=== PATIENT | male | born 1985 | race Caucasian/White ===

== ENCOUNTER 2023-12-30 11:24 | Inpatient (IN) | payer SELFPAY ==
[2023-12-30] VITALS (69 sets, daily range): BP systolic 61–120; BP diastolic 39–70; PULSE 57–112; TEMP 37.1; O2SAT 88–100
--- NOTE | 2023-12-30 11:32 | CT_ITS ---
WS: [id number] CT HEAD TECHNIQUE: Noncontrast CT of the head obtained from the skullbase to the vertex. CLINICAL INFORMATION: Encephalopathy, altered mental status COMPARISON: None. DLP: 1168.[address] scans at [facility] use at least one of these dose optimization techniques: automated e xposure control; mA and/or kV adjustment per patient size (includes targeted exams where dose is matc hed to clinical indication); or iterative reconstruction. FINDINGS: No evidence of intracranial hemorrhage or mass effect. Ventricular system and basal cisterns are alba nt. No extra-axial fluid collections. No evidence of mass or mass effect. Normal hutson-white different iation. Slight mucosal thickening in the ethmoid air cells. Mastoid air cells well aerated. CT/CT head wo con* [id number] IMPRESSION: 1. No evidence of intracranial hemorrhage or mass effect. 2. No acute intracranial findings.
--- NOTE | 2023-12-30 11:32 | XRR_ITS ---
PROCEDURE INFORMATION: Exam: XR Chest Exam date and time: 12/30/2023 11:36 AM Age: 38 years old Clinical indication: Other: Weakness TECHNIQUE: Imaging protocol: Radiologic exam of the chest. Views: 1 view. COMPARISON: No relevant prior studies available. FINDINGS: Lungs: Unremarkable. No consolidation. Pleural spaces: Unremarkable. No pleural effusion. No pneumothorax. Heart/Mediastinum: Unremarkable. No cardiomegaly. Bones/joints: Unremarkable. XR/XR chest 1V portable [id number] IMPRESSION: No acute findings.
--- NOTE | 2023-12-30 11:34 | ECG_ITS ---
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 Measurements Intervals [place] Rate: 110 P: 82 LA: 142 QRS: 85 QRSD: 98 T: 57 QT: 328 QTc: 444 Interpretive Statements SINUS TACHYCARDIA POSSIBLE RIGHT ATRIAL ENLARGEMENT [0.25mV P-WAVE] POSSIBLE LEFT ATRIAL ENLARGEMENT [-0.1mV P-WAVE IN V1/V2] ABNORMAL RHYTHM ECG INTERPRETATION BASED ON A DEFAULT AGE OF 40 YEARS No previous ECG available for comparison Electronically Signed On 12-31-2023 6:26:31 CDT by Reynaldo Alexander M.D. [email or web address]
--- NOTE | 2023-12-30 11:37 | ED_ITS ---
HPI - Seizure 2 General: Chief Complaint: Seizure Stated Complaint: Seizures x 2 Time Seen by Provider: 12/30/23 11:29 History of Present Illness: HPI Narrative: 38-year-old man who presents to the [facility] room by ambulance after having had a seizure. Per EMS he lives in the home of a woman who does not know anything about him. We are told he is expelled. He smokes marijuana but no other information at this time. EMS reports he was actively seizing when they arrived they gave a total of 4 of Ativan and when he came to he became agitated and they gave him some Haldol. On arrival here he is having sonorous breathing and is basically unresponsive. Review of Systems 2 General: Reports: ROS unobtainable due to medical condition and ROS unobtainable due to mental status Physical Exam 2 Narrative: EXAM NARRATIVE: General: responds minimally to painful stimuli. Snoring respirations Skin: Warm, dry Head: Normocephalic, atraumatic. Neck: Supple, trachea midline. Eye: Extraocular movements are intact. Ears, nose, mouth and throat: Dry oral mucosa. Cardiovascular: Regular rate and rhythm, Normal peripheral perfusion. Respiratory: Lungs are clear to auscultation, respirations are non-labored, breath sounds are equal, Symmetrical chest wall expansion. Gastrointestinal: Soft, Nontender, Non distended, Normal bowel sounds. Musculoskeletal: no deformity. Neurological: Not Alert and oriented, No obvious focal neurological deficit observed. Psychiatric: unable to assess. Course 2 Vital Signs: Vital signs: Vital Signs Pulse Rate 97 12/30/23 13:12 Blood Pressure 106/43 12/30/23 13:12 Pulse Oximetry 94 12/30/23 13:12 Oxygen Delivery Me thod Room Air 12/30/23 13:12 MDM - Seizure MDM Narrative Medical decision making narrative: Medical decision making: Differential diagnosis for this patient with a complaint of seizure like activity would include but not be limited to, and based on the above HPI, review of systems and physical exam: seizure, DT's, alcohol withdrawal, brain malignancy, pseudo-seizure, syncope. Also would have concern for meningitis given his history of headaches and nausea. Orders placed to evaluate differential diagnosis based on the above differential, HPI and physical exam AB.0 /77. 89% on room air. Pure metabolic acidosis. No CO2 retention. It appears this is a lactic acidosis. Ketones are negative. EKG: Time 11:34 AM. Rate 110. Sinus tachycardia, No ST-T changes, no ectopy, normal [place] & QRS intervals, This was reviewed and interpreted by myself the ER physician at 11:38 AM Chest x-ray: No acute process. No infiltrate. No pneumothorax. This was reviewed and interpreted by myself the ER physician. CT head: No acute intracranial process. no intracranial hemorrhage, no evidence of infarct. no evidence of acute fracture.This was reviewed and interpreted by myself the ER physician. Lab Review: Laboratory results were reviewed and interpreted by myself the emergency room physician Patient has a lactic acid of 15.4. White count is elevated at 19. Hemoglobin is a little above normal at 17. Platelets are normal at 392. BUN is slightly elevated at 24 and creatinine is up a little bit at 1.1 in this young person. Also his glucose is slightly elevated at 230. Ketones are negative. His bicarb is 13. Blood alcohol level is negative. Tylenol is negative. Salicylates are negative. Consultation: I spoke with Dr. Mata who is on-call for neurology. She agrees with the 2 g of Keppra that I have given in recommends he go home on 1 g twice daily. She does not rec an MRI at this time. Consultation: I spoke with Dr. Rice who is on-call for the hospitalist who will admit the patient to the ICU. She recommends a lumbar puncture and I agree with this as well. Consultation: I spoke with Dr. Quinonez who is on-call for interventional radiology. I have ordered a lumbar puncture and she says she will try to get to it in the next hour or so. I reviewed the patient's medical record. Reexamination: Patient has become a bit more arousable. He is pulled out the nasal trumpet. He has been maintaining his airway. Oxygen sats remained in the mid 90s. He is moving all of his extremities at times. Still extremely somnolent and snoring. Assessment and plan: Seizure Lactic acidosis Metabolic encephalopathy Dehydration -Patient received 4 of Ativan and 5 mg of Haldol and route. ? 2000 mg IV Keppra here in the emergency room. ? 1 L normal saline bolus. Patient appears a bit dehydrated and his blood pressure is soft. - Lumbar puncture is ordered and pending at this time. Dr. Quinonez is going to perform the LP as patient is being transferred to the floor. -I discussed the patient with with the hospitalist on-call who is admitting the patient. - Discussed findings and plan with friend/family. Answered any questions. - All laboratory values were reviewed and interpreted personally by myself, the ER physician - All imaging was reviewed and interpreted personally by myself, the ER physician. - Evaluation and treatment of this problem were appropriate in the emergency setting -I spent a total of >35 minutes of critical care time managing the patient, independent of any other practitioner. -The time involved in the performance of separately reportable procedures was not counted towards critical care time. Lab Data 12/30/23 11:53 12/30/23 11:53 Labs: Radiology Impressions Chest X-Ray 12/30/23 11:32 IMPRESSION: No acute findings. Head CT 12/30/23 11:32 IMPRESSION: 1. No evidence of intracranial hemorrhage or mass effect. 2. No acute intracranial findings. Laboratory Results WBC 19.01 10^3/uL (3.29-11.43) H 12/30/23 11:53 RBC 5.46 10^6/uL (3.85-5.65) 12/30/23 11:53 Hgb 17.00 g/dL (11.27-16.99) H 12/30/23 11:53 Hct 52.3 % (37-53) 12/30/23 11:53 MCV 95.8 fl (82-101) 12/30/23 11:53 MCH 31.1 pg (27-33) 12/30/23 11:53 MCHC 32.5 g/dL (30-55) 12/30/23 11:53 RDW 12.9 % (12.1-15.1) 12/30/23 11:53 Plt Count 392 10^3/cmm (157-399) 12/30/23 11:53 MPV 9.7 fL (7.4-10.4) 12/30/23 11:53 Neut % (Auto) 80.9 % 12/30/23 11:53 Lymph % (Auto) 15.0 % 12/30/23 11:53 [place] % (Auto) 3.4 % 12/30/23 11:53 Eos % (Auto) 0.1 % 12/30/23 11:53 Baso % (Auto) 0.2 % 12/30/23 11:53 Neut # (Auto) 15.41 10^3/uL (1.8-7.7) H 12/30/23 11:53 Lymph # (Auto) 2.9 10^3/uL (0.8-4.8) 12/30/23 11:53 [place] # (Auto) 0.6 10^3/uL (0.2-0.9) 12/30/23 11:53 Eos # (Auto) 0.0 10^3/uL (0.0-0.8) 12/30/23 11:53 Baso # (Auto) 0.0 10^3/uL (0.0-0.1) 12/30/23 11:53 Nucleated RBC % (auto) 0 % 12/30/23 11:53 Nucleated RBCs # 0.0 /100WBC 12/30/23 11:53 Specimen Type Arterial 12/30/23 11:45 Sample Site Brachial, right 12/30/23 11:45 ABG pH 7.01 (7.35-7.45) L* 12/30/23 11:45 ABG pCO2 42.5 mmHg (35-45) 12/30/23 11:45 ABG pO2 77.1 mmHg (80.0-100.0) L 12/30/23 11:45 ABG PO2/FiO2 Ratio 367 12/30/23 11:45 ABG HCO3 10.7 mmol/L (22-26) L 12/30/23 11:45 ABG O2 Saturation 89.4 12/30/23 11:45 ABG Base Excess -20.2 mmol/L (-2.0-2.0) L 12/30/23 11:45 Cody Test N/a 12/30/23 11:45 A-a O2 Gradient 2.6 mmHg (5-10) L 12/30/23 11:45 Hematocrit 52.5 % (42-52) H 12/30/23 11:45 Hgb O2 Saturation 87.4 % (95-100) L 12/30/23 11:45 Carboxyhemoglobin 0.9 %THgb (0.4-20.1) 12/30/23 11:45 Methemoglobin 1.3 % (0.4-1.5) 12/30/23 11:45 Total Hemoglobin 17.1 g/dL (14-18) 12/30/23 11:45 Sodium 138.0 mmol/L (131-143) 12/30/23 11:45 Potassium 4.3 mmol/L (3.5-5.0) 12/30/23 11:45 Glucose 281.0 mg/dL (70-115) H 12/30/23 11:45 Ionized Calcium 1.2 mmol/L (1.1-1.4) 12/30/23 11:45 O2 Delivery Device Room air 12/30/23 11:45 FiO2 21.0 % 12/30/23 11:45 Manager Of Business ID Amh 12/30/23 11:45 Sodium 140 mmol/L (136-145) 12/30/23 11:53 Potassium 3.7 mmol/L (3.5-5.1) 12/30/23 11:53 Chloride 96 mmol/L (98-107) L 12/30/23 11:53 Carbon Dioxide 13 mmol/L (22-29) L 12/30/23 11:53 Anion Gap 34.7 (5-19) H 12/30/23 11:53 BUN 24 mg/dL (6-20) H 12/30/23 11:53 Creatinine 1.1 mg/dL (0.7-1.2) 12/30/23 11:53 GFR Calculation 74.9 mL/min (90-130) L 12/30/23 11:53 Glucose 230 mg/dL (65-115) H 12/30/23 11:53 Calculated Osmolality 301 mOsm/kg (285-295) H 12/30/23 11:53 Lactic Acid 15.4 mmol/L (0.5-2.2) H* 12/30/23 11:53 Calcium 9.0 mg/dL (8.5-10.5) 12/30/23 11:53 Total Bilirubin 0.5 mg/dL (0.15-1.2) 12/30/23 11:53 AST 20 U/L (0-40) 12/30/23 11:53 ALT 18 U/L (0-41) 12/30/23 11:53 Alkaline Phosphatase 91 U/L (40-130) 12/30/23 11:53 C-Reactive Protein 3.0 mg/L (0.0-4.9) 12/30/23 11:53 Total Protein 7.9 g/dL (6.6-8.7) 12/30/23 11:53 Albumin 4.7 g/dL (3.5-5.2) 12/30/23 11:53 Globulin 3.2 g/dL (1.3-4.6) 12/30/23 11:53 Urine Color Yellow (Yellow) 12/30/23 13:32 Urine Appearance Clear (CLEAR) 12/30/23 13:32 Urine pH 5.0 (5-7) 12/30/23 13:32 Ur Specific [place] 1.026 (1.005-1.030) 12/30/23 13:32 Urine Protein 2+ (Negative) A 12/30/23 13:32 Urine Glucose (UA) Negative (Normal) 12/30/23 13:32 Urine Ketones Negative (Negative) 12/30/23 13:32 Urine Blood 1+ (Negative) A 12/30/23 13:32 Urine Nitrate Negative (Negative) 12/30/23 13:32 Urine Bilirubin Negative (Negative) 12/30/23 13:32 Urine Urobilinogen 1.0 mg/dL (Negative) 12/30/23 13:32 Ur Leukocyte Esterase Negative (Negative) 12/30/23 13:32 Urine RBC 0-2 /hpf (0-2) 12/30/23 13:32 Urine WBC 0-5 /hpf (0-5) 12/30/23 13:32 Ur Squamous Epith Cells 0-5 /hpf (0-5) 12/30/23 13:32 Amorphous Sediment Not Reportable 12/30/23 13:32 Urine Bacteria None seen /hpf (NONE) 12/30/23 13:32 Hyaline Casts 24.82 /lpf 12/30/23 13:32 Salicylates < 0.3 mg/dL (3-10) L 12/30/23 11:53 Urine Opiates Screen Negative ng/mL (Negative) 12/30/23 13:32 Acetaminophen 15.0 ug/mL (10-30) 12/30/23 11:53 Ur Barbiturates Screen Negative ng/mL (Negative) 12/30/23 13:32 Ur Phencyclidine Scrn Negative ng/mL (Negative) 12/30/23 13:32 Ur Amphetamines Screen Negative ng/mL (Negative) 12/30/23 13:32 U Benzodiazepines Scrn Negative ng/mL (Negative) 12/30/23 13:32 Urine Cocaine Screen Negative ng/mL (Negative) 12/30/23 13:32 U Marijuana (THC) Screen Positive ng/mL (Negative) H 12/30/23 13:32 Ethyl Alcohol < 10 mg/dL (0-10) 12/30/23 11:53 Serum Ketones Negative (Negative) 12/30/23 11:53 All radiology interpretation(s) finalized by discharge Discharge Plan Discharge Patient Disposition: Admitted As Inpatient Admit Provider: Shalini Rice Clinical Impression: New onset seizure, Metabolic acidosis, Metabolic encephalopathy Condition: Stable Coding Level of Care Code ED 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
[2023-12-30 11:57] LABS: ABG PCO2 42.5 mmHg (35-45); ABG PH Result 7.01 (7.35-7.45); Alveolar-Arterial Oxygen Gradi 2.6 mmHg (5-10); Arterial Blood Gas Hematocrit 52.5 % (42-52); Base Excess ABG -20.2 mmol/L (-2.0-2.0); Blood Gas Operator Identificat AMH; Blood Gas Sample Site Brachial, right; Blood Gas Sample Type Arterial; Carboxyhemoglobin 0.9 %THgb (0.4-20.1); HCO3 ABG 10.7 mmol/L (22-26); HGB O2 Sat 87.4 % (95-100); Ionized Calcium Level - ABG 1.2 mmol/L (1.1-1.4); Methemoglobin 1.3 % (0.4-1.5); Oxygen Device ROOM AIR; Oxygen Saturation ABG 89.4; PO2 ABG 77.1 mmHg (80.0-100.0); PO2 FiO2 Ratio Arterial Blood 367; Potassium Level - ABG 4.3 mmol/L (3.5-5.0); Total Hemoglobin 17.1 g/dL (14-18)
[2023-12-30 12:02] LABS: Basophils % 0.2 %; Eosinophils % 0.1 %; Hematocrit 52.3 % (37-53); Lymphocytes # 2.9 10^3/uL (0.8-4.8); Mean Corpuscular HGB Conc 32.5 g/dL (30-55); Mean Corpuscular Hemoglobin 31.1 pg (27-33); Mean Corpuscular Volume 95.8 fl (82-101); Mean Platelet Volume 9.7 fL (7.4-10.4); Monocytes # 0.6 10^3/uL (0.2-0.9); Monocytes % 3.4 %; Neutrophils # 15.41 10^3/uL (1.8-7.7); Neutrophils % 80.9 %; Nucleated Red Blood Cells % 0 %; Platelet Count 392 10^3/cmm (157-399); Red Blood Count 5.46 10^6/uL (3.85-5.65); Red Cell Distribution Width 12.9 % (12.1-15.1); White Blood Count 19.01 10^3/uL (3.29-11.43)
[2023-12-30 12:18] LABS: Ketone (Acetest) Serum Negative (Negative)
[2023-12-30 12:22] LABS: Alanine Aminotransferase 18 U/L (0-41); Albumin Level 4.7 g/dL (3.5-5.2); Alkaline Phosphatase 91 U/L (40-130); Anion Gap 34.7 (5-19); Aspartate Amino Transferase 20 U/L (0-40); Blood Urea Nitrogen 24 mg/dL (6-20); Carbon Dioxide 13 mmol/L (22-29); Chloride 96 mmol/L (98-107); Globulin 3.2 g/dL (1.3-4.6); Glomerular Filtration Rate 74.9 mL/min (90-130); Glucose 230 mg/dL (65-115); Osmolality Calculated 301 mOsm/kg (285-295); Potassium 3.7 mmol/L (3.5-5.1); Sodium 140 mmol/L (136-145); Total Bilirubin 0.5 mg/dL (0.15-1.2); Total Protein 7.9 g/dL (6.6-8.7)
[2023-12-30 12:23] LABS: Alcohol Level < 10 mg/dL (0-10); Salicylate < 0.3 mg/dL (3-10)
[2023-12-30 12:24] LABS: Lactic Sepsis W/Reflex 15.4 mmol/L (0.5-2.2)
[2023-12-30] MEDS: sodium chloride 0.9% 1,000 ML 999 ML IV (12:36)
[2023-12-30] MEDS: levETIRAcetam 2,000 MG/200 ML PREMIX 400 MG IV (13:08)
--- NOTE | 2023-12-30 13:12 | FL_ITS ---
WS: [id number] LUMBAR PUNCTURE UNDER FLUOROSCOPY: OBTAIN CSF FOR ANALYSIS HISTORY: seizure, headache, r/o meningitis. COMPARISON: CT head 12/30/2023 FLUOROSCOPY TIME: 0min [id number] # of spot films: 1 Patient is heavily sedated. Unable to obtain verbal consent by the patient. Medically necessary proce dure according to patient's condition. Consent was confirmed as necessary by the ordering physicians. Recent laboratory work and medication are reviewed prior to procedure. Skin over the lumbar is cleansed with ChloraPrep and anesthetized with 1% buffered lidocaine. Access into the thecal sac is achieved. CSF is removed in a sterile manner and placed in the sterile tubes. Approximately 10 ml is removed without difficulty. CSF is clear. No complications are encountered. CSF this into the laboratory for analysis as requested. FL/FL guided lumbarpunc dx* [id number] IMPRESSION: Uncomplicated lumbar puncture for CSF.
[2023-12-30 13:46] LABS: Reflex Lactate Order REFLEX LACTIC ORDERD
[2023-12-30 13:49] LABS: Bilirubin Urine Negative (Negative); Blood Urine 1+ (Negative); Glucose Urine UA Negative (Normal); Ketones Urine Negative (Negative); Leukocyte Esterase Urine Negative (Negative); Nitrate Urine Negative (Negative); Protein Urine 2+ (Negative); Specific Gravity, Urine 1.026 (1.005-1.030); Urine Appearance Clear (CLEAR); Urine Color Yellow (Yellow)
[2023-12-30 13:53] LABS: Bacteria Urine None Seen /hpf; Hyaline Casts Urine 24.82 /lpf; RBC Urine 0-2 /hpf (0-2); Squamous Epithelial Cell Urine 0-5 /hpf (0-5); WBC Urine 0-5 /hpf (0-5)
--- NOTE | 2023-12-30 13:57 | P.HP_ITS ---
Providers/Chief Complaint 2 Admitting Physician: Shalini Rice MD Primary Care Provider: None Chief Complaint: Seizures x 2 History of Present Illness Ruddy Nur is a 38 year old male who presented via EMS because of seizure activity. Patient himself is not able to provide any history due to current clinical condition status post seizure as well as medications administered but are known to be sedating. Ruddy lives with BRAYDEN Vail and his and history is obtained from them. Starting on Friday, 2 days prior to admission Ruddy began complaining of a headache and not feeling well. He went to bed earlier in the day because of this. Yesterday he woke up and continued to have the headache. It was a severe headache and located on the top of his head. He had some nausea but no vomiting. Light and sound seem to bother him, with him preferring lights off and TV off. He thought he might be having a migraine but is not known to have a history of migraines. He took some Tylenol and Motrin and ate some crackers and actually felt better Friday evening but woke up today around 430 or 5 with nausea and vomiting. He woke up his friend asking for some more Tylenol or Motrin and was not really quite himself at that time. He went back to sleep and around 10 AM got up not feeling good. BRAYDEN's said that he seemed confused and she had talked to him in simple terms for him to understand. He continued to be very nauseated and complained of headache and she gave him to Motrin, some Excedrin and Tylenol as well as 1 dose of Zofran that she had leftover from another prescription. About 30 minutes later he walked into the room where she was seeming very confused. He sat down and his head was turned to the right side with his eyes deviating that way and he was saying some weird things. He shot up from his seat, his head deviated the other way to the left, he spun around a few times and then he slowly fell to the floor with her helping him down and had generalized tonic-clonic movements lasting about 3 minutes. He may have bumped his head on the soft part of the couch a couple of times during the seizure but no other trauma that concerned her. He foamed at the mouth and was unresponsive. EMS was called and when they arrived Mr. Nur was noted to be postictal. He was transported to the hospital and and route came around and was a bit combative by description, receiving some Haldol. He also had additional seizure activity and received a total of 4 mg of Ativan. I was unable to discern if the combativeness preceded or followed seizure activity and route. I do not have any specific information on if there was loss of bowel or bladder function. On arrival here he had a nasal trumpet in place with stable vital signs but was unresponsive. CT of the head did not show any acute abnormalities. White count was found to be elevated, lactic acid was elevated and he had evidence of significant metabolic abnormalities. Hospitalist were contacted for admission. Case was discussed with neurology. Keppra was initiated. Further workup with MRI and EEG recommended to be completed in the outpatient setting with follow-up to neurology. Patient has never been known to have seizures before per his longtime friend. No known information relating to seizures in the family. Not known if he had had any fever the last few days. Those with whom he lives have not been sick. No known illicit drug or other substance use beyond occasional beer, THC from a known source and vaping with nicotine products all in moderation by history. No known recent head or other trauma/injuries. 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 No known occupational exposures. Review of Systems 2 General: Reports: ROS unobtainable due to medical condition (except as noted in HPI) Medications/Allergies Allergies Allergy/AdvReac Type Severity Reaction Status Date / Time No Known Allergies Allergy Verified 12/30/23 12:35 PFSH Acute 2 PFSH: Medical History (Updated 12/30/23 @ 16:18 by Shalini Rice MD) Medical history unknown Surgical History (Updated 12/30/23 @ 16:18 by Shalini Rice MD) Surgical history unknown Family History (Updated 12/30/23 @ 16:22 by Shalini Rice MD) Father Pancreatic cancer Brother Methamphetamine addiction Social History (Updated 12/30/23 @ 16:24 by Shalini Rice MD) Smoking and tobacco/nicotine status: light tobacco/nicotine user e-cigarettes E-Cigarette Details: vaporizer device and with nicotine Alcohol intake: current Alcohol use comment: few beers on weekends Substance/Drug Use: current Other substance/drug use details: occasional THC use, from known source Additional social history: Recently got a job at [employer], 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 No family is available nor have they been in touch for some time. Patient without any known chronic medical problems or chronic use of prescription medications. Only known [id number] medication use is as described in history of present illness. No known surgeries. Information is obtained from a friend of 25 years or so with whom patient is currently living. The friend is BRAYDEN Vail at [phone]. Patient's father is . Patient's mother may live somewhere in [place] but has not had contact with Ruddy for quite a few years. He has a brother who lives in [place] who is also estranged and known to have methamphetamine addiction at the time that Ruddy was last aware per BRAYDEN. Vitals/I&O/Wt Last Vital Signs Pulse 97 12/30/23 13:12 BP 106/43 12/30/23 13:12 Pulse Ox 94 12/30/23 13:12 O2 Del Method Room Air 12/30/23 13:12 12/29/23 12/30/23 12/30/23 22:59 06:59 14:59 Intake Total 1200 / 1200 Balance 1200 / 1200 Weight last 48 hrs Weight 77.111 kg Physical Exam 2 Narrative: Patient is lethargic but does move all extremities at different times. Currently without any involuntary movements. Normocephalic. Atraumatic. Pupils are approximately 5 mm to 3 mm reactive bilaterally. Nasopharynx is clear. Oropharynx with moist mucous membranes. Some bite impressions noted on tongue from teeth but no bleeding. Neck is supple without any nuchal rigidity. Lungs are clear to auscultation bilaterally without any rales rhonchi or wheezes noted. No snoring or other upper airway noise. Cardiovascular exam reveals a regular rate and rhythm. No murmurs or rubs noted. Abdomen is soft, nontender with positive bowel sounds. No pitting edema in the pretibial region. No rash or petechial/ecchymotic lesions noted to palms or soles, arms or legs, trunk. Some old scars noted to upper back, minor. No clonus is noted. Toes are upgoing bilaterally. Data 12/30/23 11:53 12/30/23 11:53 Other Labs: Radiology Impressions Chest X-Ray 12/30/23 11:32 IMPRESSION: No acute findings. Head CT 12/30/23 11:32 IMPRESSION: 1. No evidence of intracranial hemorrhage or mass effect. 2. No acute intracranial findings. Laboratory Results WBC 19.01 10^3/uL (3.29-11.43) H 12/30/23 11:53 RBC 5.46 10^6/uL (3.85-5.65) 12/30/23 11:53 Hgb 17.00 g/dL (11.27-16.99) H 12/30/23 11:53 Hct 52.3 % (37-53) 12/30/23 11:53 MCV 95.8 fl (82-101) 12/30/23 11:53 MCH 31.1 pg (27-33) 12/30/23 11:53 MCHC 32.5 g/dL (30-55) 12/30/23 11:53 RDW 12.9 % (12.1-15.1) 12/30/23 11:53 Plt Count 392 10^3/cmm (157-399) 12/30/23 11:53 MPV 9.7 fL (7.4-10.4) 12/30/23 11:53 Neut % (Auto) 80.9 % 12/30/23 11:53 Lymph % (Auto) 15.0 % 12/30/23 11:53 Bradford % (Auto) 3.4 % 12/30/23 11:53 Eos % (Auto) 0.1 % 12/30/23 11:53 Baso % (Auto) 0.2 % 12/30/23 11:53 Neut # (Auto) 15.41 10^3/uL (1.8-7.7) H 12/30/23 11:53 Lymph # (Auto) 2.9 10^3/uL (0.8-4.8) 12/30/23 11:53 Bradford # (Auto) 0.6 10^3/uL (0.2-0.9) 12/30/23 11:53 Eos # (Auto) 0.0 10^3/uL (0.0-0.8) 12/30/23 11:53 Baso # (Auto) 0.0 10^3/uL (0.0-0.1) 12/30/23 11:53 Nucleated RBC % (auto) 0 % 12/30/23 11:53 Nucleated RBCs # 0.0 /100WBC 12/30/23 11:53 Specimen Type Arterial 12/30/23 11:45 Sample Site Brachial, right 12/30/23 11:45 ABG pH 7.01 (7.35-7.45) L* 12/30/23 11:45 ABG pCO2 42.5 mmHg (35-45) 12/30/23 11:45 ABG pO2 77.1 mmHg (80.0-100.0) L 12/30/23 11:45 ABG PO2/FiO2 Ratio 367 12/30/23 11:45 ABG HCO3 10.7 mmol/L (22-26) L 12/30/23 11:45 ABG O2 Saturation 89.4 12/30/23 11:45 ABG Base Excess -20.2 mmol/L (-2.0-2.0) L 12/30/23 11:45 Cody Test N/a 12/30/23 11:45 A-a O2 Gradient 2.6 mmHg (5-10) L 12/30/23 11:45 Hematocrit 52.5 % (42-52) H 12/30/23 11:45 Hgb O2 Saturation 87.4 % (95-100) L 12/30/23 11:45 Carboxyhemoglobin 0.9 %THgb (0.4-20.1) 12/30/23 11:45 Methemoglobin 1.3 % (0.4-1.5) 12/30/23 11:45 Total Hemoglobin 17.1 g/dL (14-18) 12/30/23 11:45 Sodium 138.0 mmol/L (131-143) 12/30/23 11:45 Potassium 4.3 mmol/L (3.5-5.0) 12/30/23 11:45 Glucose 281.0 mg/dL (70-115) H 12/30/23 11:45 Ionized Calcium 1.2 mmol/L (1.1-1.4) 12/30/23 11:45 O2 Delivery Device Room air 12/30/23 11:45 FiO2 21.0 % 12/30/23 11:45 Cookie Breaker ID Amh 12/30/23 11:45 Sodium 140 mmol/L (136-145) 12/30/23 11:53 Potassium 3.7 mmol/L (3.5-5.1) 12/30/23 11:53 Chloride 96 mmol/L (98-107) L 12/30/23 11:53 Carbon Dioxide 13 mmol/L (22-29) L 12/30/23 11:53 Anion Gap 34.7 (5-19) H 12/30/23 11:53 BUN 24 mg/dL (6-20) H 12/30/23 11:53 Creatinine 1.1 mg/dL (0.7-1.2) 12/30/23 11:53 GFR Calculation 74.9 mL/min (90-130) L 12/30/23 11:53 Glucose 230 mg/dL (65-115) H 12/30/23 11:53 Calculated Osmolality 301 mOsm/kg (285-295) H 12/30/23 11:53 Lactic Acid 15.4 mmol/L (0.5-2.2) H* 12/30/23 11:53 Calcium 9.0 mg/dL (8.5-10.5) 12/30/23 11:53 Total Bilirubin 0.5 mg/dL (0.15-1.2) 12/30/23 11:53 AST 20 U/L (0-40) 12/30/23 11:53 ALT 18 U/L (0-41) 12/30/23 11:53 Alkaline Phosphatase 91 U/L (40-130) 12/30/23 11:53 C-Reactive Protein 3.0 mg/L (0.0-4.9) 12/30/23 11:53 Total Protein 7.9 g/dL (6.6-8.7) 12/30/23 11:53 Albumin 4.7 g/dL (3.5-5.2) 12/30/23 11:53 Globulin 3.2 g/dL (1.3-4.6) 12/30/23 11:53 Urine Color Yellow (Yellow) 12/30/23 13:32 Urine Appearance Clear (CLEAR) 12/30/23 13:32 Urine pH 5.0 (5-7) 12/30/23 13:32 Ur Specific [place] 1.026 (1.005-1.030) 12/30/23 13:32 Urine Protein 2+ (Negative) A 12/30/23 13:32 Urine Glucose (UA) Negative (Normal) 12/30/23 13:32 Urine Ketones Negative (Negative) 12/30/23 13:32 Urine Blood 1+ (Negative) A 12/30/23 13:32 Urine Nitrate Negative (Negative) 12/30/23 13:32 Urine Bilirubin Negative (Negative) 12/30/23 13:32 Urine Urobilinogen 1.0 mg/dL (Negative) 12/30/23 13:32 Ur Leukocyte Esterase Negative (Negative) 12/30/23 13:32 Urine RBC 0-2 /hpf (0-2) 12/30/23 13:32 Urine WBC 0-5 /hpf (0-5) 12/30/23 13:32 Ur Squamous Epith Cells 0-5 /hpf (0-5) 12/30/23 13:32 Amorphous Sediment Not Reportable 12/30/23 13:32 Urine Bacteria None seen /hpf (NONE) 12/30/23 13:32 Hyaline Casts 24.82 /lpf 12/30/23 13:32 Salicylates < 0.3 mg/dL (3-10) L 12/30/23 11:53 Urine Opiates Screen Negative ng/mL (Negative) 12/30/23 13:32 Acetaminophen 15.0 ug/mL (10-30) 12/30/23 11:53 Ur Barbiturates Screen Negative ng/mL (Negative) 12/30/23 13:32 Ur Phencyclidine Scrn Negative ng/mL (Negative) 12/30/23 13:32 Ur Amphetamines Screen Negative ng/mL (Negative) 12/30/23 13:32 U Benzodiazepines Scrn Negative ng/mL (Negative) 12/30/23 13:32 Urine Cocaine Screen Negative ng/mL (Negative) 12/30/23 13:32 U Marijuana (THC) Screen Positive ng/mL (Negative) H 12/30/23 13:32 Ethyl Alcohol < 10 mg/dL (0-10) 12/30/23 11:53 Serum Ketones Negative (Negative) 12/30/23 11:53 Laboratory Tests 12/30/23 12/30/23 13:32 14:30 Lactic Acid (Sepsis) 3.7 H Adenovirus (PCR) Not detected C. pneumoniae DNA (PCR) Not detected Coronavirus 229E (PCR) Not detected Human Metapneumovir PCR Not detected Influenza A (H1) PCR Not detected Influ A (H1/09) PCR Not detected Influenza A (H3) PCR Not detected Influenza Type A (PCR) Not detected Influenza Type B (PCR) Not detected M. pneumoniae (PCR) Not detected Parainfluenza 1 (PCR) Not detected Parainfluenza 2 (PCR) Not detected Parainfluenza 3 (PCR) Not detected Parainfluenza 4 (PCR) Not detected RSV Type A (PCR) Not detected RSV Type B (PCR) Not detected Entero/Rhino (PCR) Not detected SARS-CoV-2 (PCR) Not detected Micro: Microbiology 12/30/23 12:06 Blood Culture - Preliminary Blood SPECIMEN COLLECTED 12/30/23 12:03 Blood Culture - Preliminary Blood SPECIMEN COLLECTED EKG 1: EKG computer-generated impression: Sinus tachycardia, 110, possible biatrial enlargement, QT 328, QTc 444 A&P Assessment and plan (1) New onset seizure: Given symptoms of headache, nausea, vomiting and general malaise over the preceding days suspect viral illness, meningitis versus encephalitis. Not demonstrating classic meningeal signs on examination. CSF fluid has been obtained with results pending. While opening pressure was not formally measured, CSF was described as shooting up upon entering the spinal space by performing physician. No reported fever but febrile seizure also a consideration. With leukocytosis bacterial infection also within the differential though currently suspect this elevation is secondary rather than primary based on available history. No known similar history of seizure activity or unusual confusion behavior previously per patient's longtime friend. CT of the head did not show any evidence of mass lesions or bleed. Seizures began as focal by excellent description provided by his friends with progression to generalized tonic-clonic seizure activity followed by postictal state. (2) Metabolic encephalopathy: Secondary to metabolic abnormalities postseizure combined with medication administration including a total of 8 mg of Ativan today IV as well as some IV Haldol. (3) Metabolic acidosis: High anion gap metabolic acidosis secondary to lactic acidosis with initial values at 15 and pH of 7. Currently believe lactic acidosis secondary to focal progressing to generalized seizures. Improved on second measurement. Plan Leukocytosis currently felt secondary to seizure, left shift noted, CRP normal Elevated blood sugar without history of diabetes, likely secondary to seizures Occasional beer, vaping with nicotine products and THC use, all in moderation Observation admission for now ICU care from close monitoring given recurrent seizures today and amount of sedating medications he has received particularly given lack of chronic medications taken Seizure precautions Plan to continue keppra As needed ativan for seizures lasting more than 2-3 minutes Will need to monitor as awakens as has been confused/combative during focal portion of seizure and possibly postictal peroid today already Arrangements are underway for IR guided lumbar puncture with plan to send fluid for cell count and differential, Gram stain and culture, glucose total protein and LDH Consent done by myself and Dr Skinner as patient unable to make decisions for himself currently and this procedure felt necessary under clinical circumstances, Neurology also supported procedure being done Spoke with lab to hold the fourth tube for potential future studies Discussed with neurology and current plan is for MRI and EEG in outpatient setting along with follow-up to neurology pending results of above Blood cultures were collected Viral panel collected Will send bacterial antigens Repeat electrolytes in a few hours IVFs in interim If spikes fever, will start empiric antibiotics to include EN[employer]GY CONSERVATION TECHNICIAN coverage if do not yet have LP results back Empiric PPI IVFs SCDs for DVT prophylaxis Telemetry monitoring initially Oxygen as needed, weaning to room air as able Straight cath was used for urine collection for urinalysis Check A1c in am Supportive care otherwise Explained to friends that Ruddy will not be able to drive until he has been seizure free for at least 6 months. This information as well as follow up currently planned entered into discharge planning routine along with consult to case management. Patient not known to have a primary care provider. FULL CODE Attestations 2 Medical Necessity Statement*: Currently anticipate a stay less than two midnights in a patient with new onset focal progressing to generalized tonic-clonic seizure activity today as described. He has postictal state and has received several doses of benzodiazepines today. Plan of care as described. Coding Level of Care Code 19510 High Time for a total of 80 minutes, includes examining/interviewing patient, placing orders, counseling patient/family/other support (talking to friend with whom he lives and friends to get history), discussing plan of care with staff (nurse in ED and ICU), communicating with other healthcare providers (Dr Mata, Dr Quinonez), documenting encounter and coordinating care (plan of care after DC) Diagnoses New onset seizure R56.9 Metabolic encephalopathy G93.41 Metabolic acidosis E87.20
[2023-12-30 14:04] LABS: Amphetamines Screen Urine Negative (Negative); Barbiturates Screen Urine Negative (Negative); Benzodiazepines Screen Urine Negative (Negative); Cocaine Screen Urine Negative (Negative); Opiate Screen Urine Negative (Negative); PCP Screen Urine Negative (Negative); THC Screen Urine Positive (Negative)
[2023-12-30] MEDS: LORazepam 2 mg/mL INJ 1 mL IVP (14:23)
[2023-12-30 14:50] LABS: Lactic Acid level (Lactate) 3.7 mmol/L (0.5-2.2)
[2023-12-30] MEDS: LORazepam 2 mg/mL INJ 1 mL (15:27)
[2023-12-30 15:30] LABS: Adenovirus Not Detected (NOT DETECT); Chlamydia Pneumoniae Not Detected (NOT DETECT); Coronavirus 229E,HKU1,NL63,OC4 Not Detected (NOT DETECT); Human Metapneumovirus Not Detected (NOT DETECT); Human Rhinovirus/Enterovirus Not Detected (NOT DETECT); Influenza A Not Detected (NOT DETECT); Influenza A H1 Not Detected (NOT DETECT); Influenza A H1-2009 Not Detected (NOT DETECT); Influenza A H3 Not Detected (NOT DETECT); Influenza B Not Detected (NOT DETECT); Mycoplasma Pneumoniae Not Detected (NOT DETECT); Parainfluenza Virus Type 1 Not Detected (NOT DETECT); Parainfluenza Virus Type 2 Not Detected (NOT DETECT); Parainfluenza Virus Type 3 Not Detected (NOT DETECT); Parainfluenza Virus Type 4 Not Detected (NOT DETECT); Respiratory Syncytial Virus A Not Detected (NOT DETECT); Respiratory Syncytial Virus B Not Detected (NOT DETECT); SARS-COV-2 Not Detected (NOT DETECT)
[2023-12-30 16:03] LABS: CSF Mononuclear # 0.033 10^3/uL (50-90); Mononuclear WBC CSF % 70 % (50-90); Polynuclear Cells ,CSF # 0.014 10^3/uL (0-10); Polynuclear WBC CSF % 30 % (0-10); Red Blood Cell CSF 0 10^3/uL (0-0); White Blood Cell CSF 47 /uL (0-5)
[2023-12-30 16:06] LABS: Cyto Order Verification No Order
[2023-12-30 16:13] LABS: CSF Specific Gravity 1.005
[2023-12-30 17:03] LABS: Appearance CSF CLEAR (CLEAR); Color CSF COLORLESS (COLORLESS); Pathology Referral Yes
[2023-12-30 17:04] LABS: Glucose CSF 117 mg/dL (40-70); Total Protein CSF 54 mg/dL (15-45)
[2023-12-30] MEDS: lactated ringers 1,000 ML 150 ML IV ×2 (17:14→23:47)
[2023-12-30 18:38] LABS: Anion Gap 14.3 (5-19); Blood Urea Nitrogen 21 mg/dL (6-20); Calcium 8.4 mg/dL (8.5-10.5); Carbon Dioxide 25 mmol/L (22-29); Chloride 104 mmol/L (98-107); Glomerular Filtration Rate 83.6 mL/min (90-130); Glucose 101 mg/dL (65-115); Osmolality Calculated 291 mOsm/kg (285-295); Potassium 4.3 mmol/L (3.5-5.1); Sodium 139 mmol/L (136-145)
[2023-12-30] MEDS: levETIRAcetam 1,000 MG/100 ML PREMIX 400 MG IV (22:43)
[2023-12-31] VITALS (101 sets, daily range): BP systolic 73–136; BP diastolic 45–77; PULSE 78–112; RESP 15–33; TEMP 38.5–39.7; O2SAT 87–100
--- NOTE | 2023-12-31 03:32 | PC.NURSE ---
Fever: Patient had a temperature of 102.[address] Lopez was contacted and gave telephone orders for 15mg ketorolac IVP ONCE.
[2023-12-31] MEDS: ketorolac 30 mg/mL INJ 15 MG IVP ×3 (04:02→18:14)
[2023-12-31 05:14] LABS: Basophils % 0.1 %; Hematocrit 41.8 % (37-53); Lymphocytes # 1.2 10^3/uL (0.8-4.8); Lymphocytes % 10.8 %; Mean Corpuscular HGB Conc 33.7 g/dL (30-55); Mean Corpuscular Hemoglobin 31.1 pg (27-33); Mean Corpuscular Volume 92.1 fl (82-101); Mean Platelet Volume 9.4 fL (7.4-10.4); Monocytes % 8.7 %; Neutrophils # 8.71 10^3/uL (1.8-7.7); Nucleated Red Blood Cells % 0 %; Platelet Count 256 10^3/cmm (157-399); Red Blood Count 4.54 10^6/uL (3.85-5.65); Red Cell Distribution Width 12.9 % (12.1-15.1); White Blood Count 10.88 10^3/uL (3.29-11.43)
[2023-12-31 05:46] LABS: Alanine Aminotransferase 15 U/L (0-41); Albumin Level 3.9 g/dL (3.5-5.2); Alkaline Phosphatase 67 U/L (40-130); Aspartate Amino Transferase 22 U/L (0-40); Blood Urea Nitrogen 19 mg/dL (6-20); Calcium 8.3 mg/dL (8.5-10.5); Carbon Dioxide 25 mmol/L (22-29); Chloride 106 mmol/L (98-107); Globulin 2.3 g/dL (1.3-4.6); Glomerular Filtration Rate 94.4 mL/min (90-130); Glucose 123 mg/dL (65-115); Magnesium 2.3 mg/dL (1.7-2.3); Osmolality Calculated 298 mOsm/kg (285-295); Sodium 142 mmol/L (136-145); Total Bilirubin 0.4 mg/dL (0.15-1.2); Total Protein 6.2 g/dL (6.6-8.7)
[2023-12-31 05:48] LABS: Estmated Average Glucose 105; Hemoglobin A1C 5.3 % (4.0-6.0)
[2023-12-31] MEDS: lactated ringers 1,000 ML 150 ML IV (07:04)
[2023-12-31 08:03] LABS: Glucose Point of Care 105 mg/dL (70-110)
[2023-12-31] MEDS: acetaminophen 650 mg Supp PR (08:19)
--- NOTE | 2023-12-31 08:22 | PC.NURSE ---
notified admitting provider of patient temp of 103.5 instruction to notify the oncoming provider tylenol suppository given for fever at this time patient tolerated well
[2023-12-31] MEDS: sodium chloride 0.9% 1,000 ML 75 ML IV ×2 (08:55→21:08)
[2023-12-31] MEDS: cefTRIAXone 2,000 mg SDV 2000 MG IVP (09:13)
[2023-12-31 10:07] LABS: Lactic Sepsis W/Reflex 2.5 mmol/L (0.5-2.2)
[2023-12-31] MEDS: pantoprazole 40 mg SDV IVP (10:24)
[2023-12-31] MEDS: acyclovir 500 MG in sodium chloride 0.9% (100 ml) 100 ML 110 MG IV ×2 (10:25→17:46)
[2023-12-31] MEDS: levETIRAcetam 1,000 MG/100 ML PREMIX 400 MG IV ×2 (10:25→23:35)
[2023-12-31 11:30] LABS: Reflex Lactate Order REFLEX LACTIC ORDERD
[2023-12-31] MEDS: vancomycin 1,250 MG/250 ML PIGGYBACK 200 MG IV ×2 (11:39→17:46)
--- NOTE | 2023-12-31 12:19 | P.PN_ITS ---
Subjective 2 Subjective: Patient started spiking fever Complaining of headache Patient has high neutrophils on CSF studies Will request STDs, HIV panel and bio fire miscellaneous test Will request MRI as well No need of EEG Likely etiology of seizure is meningitis As per the friend he probably was suffering from sinusitis few days ago, Vitals/I&O/Wt Last Vital Signs Temp 103.5 F H 12/31/23 08:22 Pulse 93 12/31/23 10:40 Resp 23 H 12/31/23 06:00 BP 118/63 12/31/23 06:00 Pulse Ox 98 12/31/23 10:40 O2 Del Method Room Air 12/31/23 10:40 O2 Flow Rate 1 12/30/23 15:58 12/30/23 12/31/23 12/31/23 22:59 06:59 14:59 Intake Total 440 / 1640 1660 / 3300 210 / 210 Output Total 800 / 800 Balance 440 / 1640 860 / 2500 210 / 210 Weight last 48 hrs Weight 82.327 kg Weight 82.327 kg Weight 83.461 kg Weight 77.111 kg Physical Exam 2 Narrative: Patient is groggy however able to follow commands, I was not able to completely visualize all of his teeth, Euvolemic No active seizure Febrile Tachycardia, tachypnea Normotensive Soft abdomen Body feels warm Currently on room air Data 12/31/23 04:23 12/31/23 04:23 Micro: Microbiology 12/30/23 13:32 Bacterial Antigens - Final Urine,Clean Catch 12/30/23 15:09 Gram Stain - Final Cerebrospinal Fluid 12/30/23 12:06 Blood Culture - Preliminary Blood SPECIMEN COLLECTED 12/30/23 12:03 Blood Culture - Preliminary Blood SPECIMEN COLLECTED A&P Assessment and plan (1) Metabolic acidosis: (2) Metabolic encephalopathy: (3) New onset seizure: (4) Meningitis: Plan Meningitis Meningitis related seizure: Currently on Keppra I will request MRI No need of EEG Start acyclovir, doxycycline ceftriaxone and vancomycin Requested by for miscellaneous test Requested herpes HIV and STD panel Ketorolac and Tylenol to be used on an alternating basis for fever I did go over potential complication related to meningitis with the friend at the bedside Lactic acid improved Metabolic acidosis: Bicarb near normal range no need to bicarb drip at this point Lactic acid is improving High lactic acid like related to episode of seizure Blood screen positive for marijuana No previous history of seizures As per the friend patient possibly had sinusitis few days ago Requested herpes test on his CSF panel Will put patient on isolation Add DVT prophylaxis Start diet clear liquids Attestations 2 Medical Necessity Statement*: Continue ICU management Diagnoses Metabolic acidosis E87.20 Metabolic encephalopathy G93.41 New onset seizure R56.9 Meningitis G03.9
[2023-12-31] MEDS: doxycycline 100 mg Tablet PO ×2 (12:59→17:46)
[2023-12-31 13:32] LABS: Lactic Acid level (Lactate) 1.3 mmol/L (0.5-2.2)
[2023-12-31 14:52] LABS: HIV 1 & 2 Antibody Non-Reactive (Non-Reactiv); HIV 1 & 2 Antigen Non-Reactive (Non-Reactiv)
[2023-12-31] MEDS: acetaminophen 325 mg Tablet 650 MG PO (20:10)
[2024-01-01] VITALS (60 sets, daily range): BP systolic 91–164; BP diastolic 43–126; PULSE 80–103; RESP 8–35; TEMP 38.2–39.9; O2SAT 95–100; BMI 19.5
[2024-01-01] MEDS: ketorolac 30 mg/mL INJ 15 MG IVP ×3 (00:23→22:59)
[2024-01-01] MEDS: acyclovir 500 MG in sodium chloride 0.9% (100 ml) 100 ML 110 MG IV (00:23)
[2024-01-01] MEDS: vancomycin 1,250 MG/250 ML PIGGYBACK 200 MG IV ×2 (01:30→09:47)
[2024-01-01] MEDS: acetaminophen 325 mg Tablet 650 MG PO ×3 (03:39→18:22)
[2024-01-01 05:52] LABS: Basophils % 0.3 %; Hematocrit 40.6 % (37-53); Lymphocytes # 1.7 10^3/uL (0.8-4.8); Mean Corpuscular HGB Conc 33.7 g/dL (30-55); Mean Corpuscular Hemoglobin 31.1 pg (27-33); Mean Corpuscular Volume 92.3 fl (82-101); Mean Platelet Volume 9.4 fL (7.4-10.4); Monocytes # 1.2 10^3/uL (0.2-0.9); Monocytes % 12.3 %; Neutrophils # 6.88 10^3/uL (1.8-7.7); Neutrophils % 70.2 %; Nucleated Red Blood Cells % 0 %; Platelet Count 225 10^3/cmm (157-399); Red Cell Distribution Width 12.5 % (12.1-15.1); White Blood Count 9.81 10^3/uL (3.29-11.43)
[2024-01-01 06:20] LABS: Blood Urea Nitrogen 16 mg/dL (6-20); Calcium 7.9 mg/dL (8.5-10.5); Carbon Dioxide 24 mmol/L (22-29); Chloride 107 mmol/L (98-107); Creatinine Clr Calc Pharmacy 170.8592; Glomerular Filtration Rate 108.2 mL/min (90-130); Glucose 103 mg/dL (65-115); Osmolality Calculated 293 mOsm/kg (285-295); Sodium 141 mmol/L (136-145)
[2024-01-01] MEDS: cefTRIAXone 2,000 mg SDV 2000 MG IVP (08:24)
--- NOTE | 2024-01-01 08:38 | MR_ITS ---
WS: [id number] MRI BRAIN WITHOUT CONTRAST HISTORY: seizure COMPARISON: None available. TECHNIQUE: Only diffusion imaging obtained. Patient was unable to remain still for this examination. Abbreviated examination of the brain is performed. There is significant motion artifact. Diffusion weighted images show abnormal signal in the medial LEFT temporal lobe to extend to involve the LEFT insular ribbon. There is increased signal with mild enlargement of the temporal lobe. No add itional signal abnormalities are appreciated but there is significant motion artifact on both the FLA IR and diffusion imaging. Suspect additional increased FLAIR signal in the posterior and lateral LEFT temporal lobe cortex also . MR/MR head wo con* [id number] IMPRESSION: 1. Extremely limited evaluation of the brain due to patient's movement. 2. Large area of abnormal diffusion signal in the LEFT medial temporal lobe to involve the insular ribbon. Differential is most likely acute herpes encephali tis, acute infarct or status epilepticus.
--- NOTE | 2024-01-01 09:31 | XR_ITS ---
WS: [id number] Pelvis, AP portable supine, 01/01/2024 Clinical Data: Rule out for MRI Comparison: None. Findings: No fractures or dislocations are seen. The SI joints and pubic symphysis are intact. The soft tissues are not remarkable. There are small clips overlying the scrotum probably from a vasectomy. XR/XR pelvis 1-2V* [id number] Impression: Small clips in scrotum from a vasectomy.
--- NOTE | 2024-01-01 09:32 | XR_ITS ---
WS: [id number] KUB, AP portable supine view, 01/01/2024 Clinical Data: Rule metal for MRI Comparison: None. Findings: No abnormal intraabdominal masses or calcifications are seen. There is no dilatated small bowel or ev idence of obstruction. There is air in the small bowel and colon. XR/XR abdomen 1V* [id number] Impression: Moderate generalized ileus.
--- NOTE | 2024-01-01 09:43 | PC.NURSE ---
Patient follows commands, answers to name but unable to answer any orientation questions. unable to answer MRI screening form no family available to answer questions friends at bedside unsure of answers. Family friend at bedside demanding MRI be done, MRI stated not safe to do an MRI without the screening being done. Dr. Ya ordered Xrays per orders to rule out foreign body/metal objects prior to doing MRI
[2024-01-01 09:44] LABS: Vancomycin Trough 8.5 ug/mL (10-15)
--- NOTE | 2024-01-01 09:45 | PC.NURSE ---
soldering technician not able to do the MRI at 1000 due to the patient not being able to fill out the MRI screening sheet Friends at bedside are able to answer questions about him I asked them if they had any contact information for the next of kin they stated we do not have any way of contacting them his brother is a strung out meth head and his mom is a rich cunt I asked if there would be any contact information in the patients phone. they stated there might be but its protected by a pass code that we do not know Attempted to ask patient screening questions to which he stated i don't know to each one assessed patients orientation Patient was not able to tell me where he was other than in the bedroom around here when asked who the president was he stated i don't know somebody is patient unable to tell me his .
[2024-01-01] MEDS: pantoprazole 40 mg SDV IVP (09:48)
[2024-01-01] MEDS: doxycycline 100 mg Tablet PO ×2 (09:48→18:13)
[2024-01-01] MEDS: acyclovir 500 MG in sodium chloride 0.9% (plus) 100 ML 110 MG IV ×2 (10:49→18:12)
[2024-01-01] MEDS: sodium chloride 0.9% 1,000 ML 75 ML IV ×2 (10:54)
[2024-01-01 11:09] LABS: Complement C3 115 mg/dL (90-180)
[2024-01-01] MEDS: PENICILLIN POTASSIUM IV ×3 (11:09→21:54)
[2024-01-01] MEDS: SODIUM CHLORIDE 0.9% IV ×3 (11:09→21:54)
[2024-01-01] MEDS: levETIRAcetam 1,000 MG/100 ML PREMIX 400 MG IV ×2 (11:09→23:12)
--- NOTE | 2024-01-01 11:25 | P.PN_ITS ---
Subjective 2 Subjective: Patient is still febrile, I will request neurosyphilis studies, add penicillin Cultures negative to date Will request MRI of head after getting abdominal and pelvic x-ray to make sure there is no metal in his body Patient is answering I do not know to most of the questions Able to make eye contact, may moving his extremities He is still confused However he is more awake and alert today in comparison to yesterday I have discussed this case with Dr. Doyle who will evaluate the patient as well His friends were getting upset that we are not able to get MRI I had to explain them that we have to make sure there is no marrow and we do not cause any harm by doing MRI I am not sure if patient is able to lay flat for the MRI will give him Ativan They were requesting transfer to another facility Vitals/I&O/Wt Last Vital Signs Temp 102.7 F H 01/01/24 08:45 Pulse 85 01/01/24 10:15 Resp 35 H 01/01/24 10:15 BP 117/53 01/01/24 10:15 Pulse Ox 95 01/01/24 10:15 O2 Del Method Room Air 01/01/24 03:30 O2 Flow Rate 1 12/30/23 15:58 12/31/23 01/01/24 01/01/24 22:59 06:59 14:59 Intake Total 1760 / 2340 460 / 2800 1999 / 1999 Output Total 1700 / 1700 1450 / 3150 Balance 60 / 640 -990 / -350 1999 / 1999 Weight last 48 hrs Weight 86.863 kg Weight 82.327 kg Weight 82.327 kg Weight 83.461 kg Weight 77.111 kg Physical Exam 2 Narrative: Patient is confused Awake and alert GCS 15 Pleasant and cooperative No active seizure Nonfocal neuroexam Febrile Normotensive Skin tattoos No skin rash No tick bites Data 01/01/24 04:59 01/01/24 04:59 Micro: Microbiology 12/30/23 12:06 Blood Culture - Preliminary Blood NEGATIVE TO DATE 12/30/23 12:03 Blood Culture - Preliminary Blood NEGATIVE TO DATE 12/30/23 15:09 Gram Stain - Final Cerebrospinal Fluid CSF Culture - Preliminary 12/30/23 13:32 Bacterial Antigens - Final Urine,Clean Catch A&P Assessment and plan (1) Metabolic acidosis: (2) Meningitis: (3) Metabolic encephalopathy: (4) New onset seizure: Plan Persistent fever Meningitis No recurrence of seizure I will add neurosyphilis studies and start treatment with penicillin empirically Start penicillin along ceftriaxone vancomycin and acyclovir Continue IV fluids Monitor kidney function For febrile episodes with alternating between Tylenol and Toradol Metabolic encephalopathy related to meningitis No recurrence of seizure Patient is confused but pleasant More awake and alert as compared to yesterday We are getting head MRI today Spoke with Dr. Doyle for evaluation as well I will facilitate the transfer if that is required and family keeps requesting persistently I will advance his diet to regular, he is awake and alert, able to protect airway DVT prophylaxis Lovenox Attestations 2 Medical Necessity Statement*: Continue ICU management Diagnoses Metabolic acidosis E87.20 Meningitis G03.9 Metabolic encephalopathy G93.41 New onset seizure R56.9
[2024-01-01] MEDS: enoxaparin 40 mg/0.4 mL Syringe SUBCUT (12:39)
[2024-01-01] MEDS: sennosides-docusate Tablet 1 TAB PO (12:39)
--- NOTE | 2024-01-01 12:51 | PC.NURSE ---
this nurse notified HCP of elevated temp, no N.O.
--- NOTE | 2024-01-01 13:49 | P.CONIM_ITS ---
Providers/Reason For Consult 2 Consulting Physician/Specialty*: Tree Doyle MD neurology and epilepsy Reason for Consult*: New onset seizure and abnormal CSF consistent with acute encephalitis/meningitis Attending Physician: Park Ya MD History of Present Illness History of Present Illness Ruddy Nur is a 38 year old male who was reported to experience complaints of headaches and neck pain on 12/28/2023. On 12/30/2023 patient was reported to experience new onset seizure. The patient was brought to [facility] emergency department and patient was admitted. Lumbar puncture was performed on 12/30/2023 and revealed elevated white count of 47 with elevated polys of 30% (normal equals 0-10), decreased monocytes 0.033, elevated glucose 117 (normal equals 40-70), elevated protein 54 (normal equals 15-45). The patient was also reported to have elevated temperature and was started on broad-spectrum antibiotics with vancomycin, Rocephin and acyclovir. Remaining CSF labs were pending. Patient admitted to the ICU but was reported to continue to have high fevers and confusion. Patient is on IV Keppra. Noncontrast head MRI was obtained on 01/01/2024 and revealed Impression: 1. Extremely limited evaluation of the brain due to patient's movement. 2. Large area of abnormal diffusion signal in the LEFT medial temporal lobe to involve the insular ribbon. Differential is most likely acute herpes encephalitis, acute infarct or status epilepticus. Clinically the patient is currently alert and in no apparent distress. He is confused. According to the nurse the patient has been restless. Patient follows some commands with the assistance of his friend. The patient has a history of marijuana use and vapes. He also has a history of alcohol use but according to the friend who is at the patient bedside the patient has not had any alcohol in greater than 1 week. She reported the patient is a social drinker but not a heavy drinker. I spoke with the hospitalist caring for the patient and he will be transferred to another facility where there is infectious disease physicians to address the patient's condition. Patient will remain on Keppra. EEG was canceled secondary to patient restlessness and concerns that this study will be unable to be obtained secondary to patient restlessness and lack of cooperation. Drug allergies: None Past medical history: None (according to the friend at the patient's bedside) Outpatient medications: Unknown Habits: The patient smokes marijuana and vapes and drinks alcohol Family history: Unable to obtain from patient due to medical illness Review of Systems 2 General: Reports: ROS unobtainable due to medical condition and ROS unobtainable due to mental status Medications/Allergies Home Medications Medication Instructions Recorded Confirmed Last Taken Type No Known Home Medications 12/31/23 12/31/23 Unknown History Allergies Allergy/AdvReac Type Severity Reaction Status Date / Time No Known Allergies Allergy Verified 12/30/23 12:35 Current Medications Generic Name Dose Route Start Last Admin Trade Name Freq PRN Reason Stop Dose Admin Acetaminophen 650 mg 12/30/23 15:45 01/01/24 12:38 Acetaminophen 325 Mg Tablet PO 650 mg Q6H PRN Administration MILD PAIN Acetaminophen 650 mg 12/30/23 15:45 12/31/23 08:19 Acetaminophen 650 Mg Supp NE 650 mg Q6H PRN Administration Fever >/=101 if cant do po Ceftriaxone Sodium 2,000 mg 12/31/23 08:45 01/01/24 08:24 Ceftriaxone 2,000 Mg Sdv IVP 2,000 mg Q24H [place] Administration Protocol Doxycycline Monohydrate 100 mg 12/31/23 12:20 01/01/24 09:48 Doxycycline 100 Mg Tablet PO 100 mg BID [place] Administration Protocol Enoxaparin Sodium 40 mg 01/01/24 11:45 01/01/24 12:39 Enoxaparin 40 Mg/0.4 Ml Syringe SUBCUT 40 mg Q24H [place] Administration Levetiracetam 1,000 mg in 100 mls @ 400 mls/hr 12/30/23 23:00 01/01/24 11:09 Keppra IV 400 mls/hr Q12H [place] Administration Sodium Chloride 1,000 mls @ 75 mls/hr 12/31/23 08:45 01/01/24 10:54 Sodium Chloride 0.9% IV 75 mls/hr .[id number] [place] Administration Acyclovir 500 mg/ Sodium 110 mls @ 110 mls/hr 01/01/24 10:00 01/01/24 10:49 Chloride IV 110 mls/hr Q8H [place] Administration Penicillin G Potassium 4,000, 100 mls @ 100 mls/hr 01/01/24 11:00 01/01/24 11:09 000 unit/ Sodium Chloride IV 100 mls/hr Q4H [facility] Administration Ketorolac Tromethamine 15 mg 12/31/23 11:20 01/01/24 09:00 Ketorolac 30 Mg/Ml Inj IVP 01/05/24 11:29 15 mg Q6H PRN Administration fever Pantoprazole Sodium 40 mg 12/31/23 09:00 01/01/24 09:48 Pantoprazole 40 Mg Sdv IVP 40 mg DAILY [place] Administration Senna/Docusate Sodium 1 tab 01/01/24 11:45 01/01/24 12:39 Sennosides-Docusate Tablet PO 1 tab DAILY [place] Administration PFSH Acute 2 PFSH: Medical History (Updated 01/01/24 @ 14:03 by Tree Doyle MD) Medical history unknown Surgical History (Updated 12/30/23 @ 16:18 by Shalini Rice MD) Surgical history unknown Family History (Updated 12/30/23 @ 17:16 by Shalini Rice MD) Father Pancreatic cancer Brother Methamphetamine addiction Social History (Updated 12/30/23 @ 16:24 by Shalini Rice MD) Smoking and tobacco/nicotine status: light tobacco/nicotine user e-cigarettes E-Cigarette Details: vaporizer device and with nicotine Alcohol intake: current Alcohol use comment: few beers on weekends Substance/Drug Use: current Other substance/drug use details: occasional THC use, from known source Additional social history: Recently got a job at [employer] also works in the [employer] at [employer] Vitals/I&O/Wt Last Vital Signs Temp 102.9 F H 01/01/24 11:50 Pulse 85 01/01/24 10:15 Resp 35 H 01/01/24 10:15 BP 117/53 01/01/24 10:15 Pulse Ox 95 01/01/24 10:15 O2 Del Method Room Air 01/01/24 03:30 O2 Flow Rate 1 12/30/23 15:58 12/31/23 01/01/24 01/01/24 22:59 06:59 14:59 Intake Total 1760 / 2340 460 / 2800 1999 Output Total 1700 / 1700 1450 / 3150 Balance 60 / 640 -990 / -350 1999 Weight last 48 hrs Weight 191 lb 8 oz Weight 181 lb 8 oz Weight 181 lb 8 oz Weight 184 lb Physical Exam 2 Narrative: The patient is awake but confused and uncooperative. Pupils 4 to 5 mm round reactive to light and accommodation. Extraocular movements appear to be intact. Motor testing grossly nonfocal. Plantar responses flexor bilaterally. Sensory examination intact to touch. Throat clear. Lungs revealed no obvious wheezing. Heart regular rhythm and rate. Extremities were negative for cyanosis. Data 01/01/24 04:59 01/01/24 04:59 Micro: Microbiology 12/30/23 15:09 Gram Stain - Final Cerebrospinal Fluid CSF Culture - Preliminary 12/30/23 12:06 Blood Culture - Preliminary Blood NEGATIVE TO DATE 12/30/23 12:03 Blood Culture - Preliminary Blood NEGATIVE TO DATE 12/30/23 13:32 Bacterial Antigens - Final Urine,Clean Catch A&P Assessment and plan (1) New onset seizure: Impression: 1. 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 New onset seizures most likely secondary to encephalitis 3. History of marijuana use 4. Abnormal CSF suggestive of acute infection Plan: 1. Agree with transfer to another facility with infectious disease physicians to address the patient's meningitis/ encephalitis 2. Continue IV Keppra 500 mg IV every 8 hours 3. Ativan 1 to 2 mg IV every 6 hours as needed for any seizure activity 4. Seizure precautions 5. 

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
--- NOTE | 2024-01-01 17:01 | PC.NURSE ---
Foly Cath removed per patient request after patient disconnected it
[2024-01-01] MEDS: vancomycin 1,500 MG/300 ML PIGGYBACK 200 MG IV (18:13)
[2024-01-01 22:20] LABS: Glucose Point of Care 93 mg/dL (70-110)
--- NOTE | 2024-01-01 23:00 | PC.NURSE ---
Fever Fever maintaining >101. Dr. Michelle notified.
[2024-01-02] VITALS (53 sets, daily range): BP systolic 101–157; BP diastolic 52–84; PULSE 62–100; RESP 9–33; TEMP 36.1–39.3; O2SAT 96–100; BMI 21.9
[2024-01-02] MEDS: vancomycin 1,500 MG/300 ML PIGGYBACK 200 MG IV ×3 (01:11→17:50)
[2024-01-02] MEDS: acyclovir 500 MG in sodium chloride 0.9% (plus) 100 ML 110 MG IV ×2 (01:12→11:23)
[2024-01-02] MEDS: acetaminophen 325 mg Tablet 650 MG PO ×2 (03:04→14:28)
[2024-01-02] MEDS: PENICILLIN POTASSIUM IV ×2 (03:59→08:59)
[2024-01-02] MEDS: SODIUM CHLORIDE 0.9% IV ×3 (03:59→20:44)
--- NOTE | 2024-01-02 04:04 | PC.NURSE ---
IV antibiotic medications periodically late due to lack of IV access.
[2024-01-02 04:19] LABS: Basophils % 0.5 %; Eosinophils # 0.1 10^3/uL (0.0-0.8); Eosinophils % 1.7 %; Hematocrit 36.8 % (37-53); Lymphocytes # 2.3 10^3/uL (0.8-4.8); Lymphocytes % 29.9 %; Mean Corpuscular HGB Conc 33.7 g/dL (30-55); Mean Corpuscular Hemoglobin 31.2 pg (27-33); Mean Corpuscular Volume 92.5 fl (82-101); Mean Platelet Volume 9.5 fL (7.4-10.4); Monocytes # 1.1 10^3/uL (0.2-0.9); Monocytes % 14.4 %; Neutrophils # 4.05 10^3/uL (1.8-7.7); Neutrophils % 53.2 %; Nucleated Red Blood Cells % 0 %; Platelet Count 193 10^3/cmm (157-399); Red Blood Count 3.98 10^6/uL (3.85-5.65); Red Cell Distribution Width 12.3 % (12.1-15.1); White Blood Count 7.62 10^3/uL (3.29-11.43)
[2024-01-02 04:37] LABS: Anion Gap 12.7 (5-19); Blood Urea Nitrogen 20 mg/dL (6-20); Calcium 8.1 mg/dL (8.5-10.5); Carbon Dioxide 24 mmol/L (22-29); Chloride 108 mmol/L (98-107); Creatinine Clr Calc Pharmacy 127.9804; Glomerular Filtration Rate 94.4 mL/min (90-130); Glucose 98 mg/dL (65-115); Osmolality Calculated 295 mOsm/kg (285-295); Potassium 3.7 mmol/L (3.5-5.1); Sodium 141 mmol/L (136-145)
[2024-01-02] MEDS: ketorolac 30 mg/mL INJ 15 MG IVP ×3 (05:25→21:05)
--- NOTE | 2024-01-02 06:20 | PC.NURSE ---
Patient found partially in the connected bathroom with black watery stool on the floor and IV site bleeding. Nurse assisted in disconnecting and cleaning patient, but the IV site was lost. Patient had continued confusion. Dr. Michelle notified of black watery bowel movement, and orders to hold next Enoxaparin dose received.
[2024-01-02] MEDS: cefTRIAXone 2,000 mg SDV 2000 MG IVP ×2 (08:22→20:26)
[2024-01-02] MEDS: pantoprazole 40 mg SDV IVP (08:22)
[2024-01-02] MEDS: sennosides-docusate Tablet 1 TAB PO (08:22)
[2024-01-02] MEDS: doxycycline 100 mg Tablet PO (08:22)
[2024-01-02 08:55] LABS: Glucose Point of Care 88 mg/dL (70-110)
[2024-01-02] MEDS: levETIRAcetam 1,000 MG/100 ML PREMIX 400 MG IV (11:23)
--- NOTE | 2024-01-02 11:42 | PM.PN ---
Subjective Subjective: Patient was afebrile in the morning however spiked fever around noon He has been getting Tylenol and Toradol He is much more conversive He curses a lot as per the friend he seems like he is back to his baseline, friend is stating that he curses more at home but he is being polite in the hospital Patient still has some memory deficit but able to communicate I do not see any aphasia there is no focal deficit He is able to get up to go to the bathroom on his own Wanting to eat more Start regular diet Tried to call [facility] who refused transfer stating that patient is already getting all the antimicrobials which they would use they will have nothing else to offer at this point Vitals/I&O/Wt Last Vital Signs Temp 98.6 F 01/02/24 10:00 Pulse 82 01/02/24 10:00 Resp 16 01/02/24 10:00 BP 132/75 01/02/24 10:00 Pulse Ox 99 01/02/24 08:00 O2 Del Method Room Air 01/02/24 05:30 O2 Flow Rate 1 12/30/23 15:58 01/01/24 01/02/24 01/02/24 22:59 06:59 14:59 Intake Total 817.5 / 3377.5 1010 / 4387.5 1072.5 / 1072.5 Balance 817.5 / 2577.5 1010 / 3587.5 1072.5 / 1072.5 Weight last 48 hrs Weight 73.482 kg Weight 86.863 kg Physical Exam Narrative: Awake and alert Nonfocal neuroexam GCS 15 Mild memory deficit No aphasia Nonfocal neuroexam Friends at the bedside Hemodynamically stable On room air Abdomen soft No skin rash Data 01/02/24 03:55 01/02/24 03:55 Micro: Microbiology 12/30/23 15:09 Gram Stain - Final Cerebrospinal Fluid CSF Culture - Preliminary A&P Assessment and plan (1) Metabolic acidosis: (2) Meningitis: (3) Encephalitis: (4) Metabolic encephalopathy: (5) New onset seizure: (6) Persistent fever: Plan 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 regimen Patient is still spiking fever Mentation is improving Memory deficit Change diet to regular Patient is able to get up walk to the bathroom on his own Tried to call [facility] who refused transfer stating that they would not do anything different than what we are doing at this point Friends wanted him to be transferred to [facility] consistent with encephalitis Pharmacy to arrange penicillin enough coverage until we get final culture report, spoke with the pharmacy DVT prophylaxis added Full code Continue isolation Continue IV fluids to prevent ELLYN with acyclovir Attestations Medical Necessity Statement*: Continue medical management Diagnoses Metabolic acidosis E87.20 Meningitis G03.9 Encephalitis G04.90 Metabolic encephalopathy G93.41 New onset seizure R56.9 Persistent fever R50.9
--- NOTE | 2024-01-02 13:04 | USCV_ITS ---
Ruddy Nur Age: 38 Gender: M : 1985 Exam Date: 01/02/2024 15:37 Ordering Phys: Park Ya MD Technologist: CT Exam Location: [facility] Indication: fever BP: 132 / 73 HR: 76 Rhythm: Sinus Technical Quality: Technically difficult study, unable to hold still only in supine position MEASUREMENTS (Male / Female) Normal Values 2D ECHO LVOT Diameter 2.1 cm LV Ejection Fraction MOD 4C 64.5 % LV Ejection Fraction MOD 2C 55.4 % LV Ejection Fraction 2C AL 56.4 % LA Diameter 3.1 cm RA Systolic Volume 4C AL 43.6 ml RA Systolic Volume 4C MOD 44.6 ml LA Sys Volume AL 55.6 cm cubed LA Sys Volume Index AL 29.0 cm cubed/m squared Aorta at Sinotubular Diameter 3.0 cm M-MODE LA Ao Ratio MM 1.2 AV Cusp Separation MM 2.3 cm DOPPLER AV Peak Velocity 126.0 cm/s LVOT Peak Velocity 89.0 cm/s AV Area Cont Eq vti 2.4 cm squared AV Area Cont Eq pk 2.4 cm squared MV Peak Velocity 85.0 cm/s MV Area PHT 4.0 cm squared Mitral E to A Ratio 1.4 TV Peak Velocity 160.0 cm/s TR Peak Velocity 243.0 cm/s TR Peak Gradient 23.6 mmHg Right Atrial Pressure 3.0 mmHg Pulmonary Artery Systolic Pressu 26.6 mmHg PV Peak Velocity 128.0 cm/s FINDINGS Left Ventricle Difficult study. The patient was uncooperative. Normal left ventricular size, systolic function and wall thickness, with no regional wall motion abnormalities. Limited views. Normal diastolic function. Right Ventricle Normal right ventricular size and systolic function. Normal right ventricular systolic pressure. Right Atrium The right atrium is normal in size. Left Atrium The left atrium is normal in size. Mitral Valve Structurally normal mitral valve without significant stenosis or prolapse. There is no mitral regurgitation. Aortic Valve Structurally normal aortic valve without significant sclerosis or stenosis. There is no aortic regurgitation. Tricuspid Valve Structurally normal tricuspid valve without significant stenosis or regurgitation. Pulmonary artery systolic pressure is normal. Pulmonic Valve Pulmonic valve not well visualized. Pericardium Normal pericardium without effusion. Aorta Normal ascending aorta dimension. IVC The inferior vena cava appears normal. CONCLUSIONS Difficult study. The patient was uncooperative. Normal left ventricular size, systolic function and wall thickness, with no regional wall motion abnormalities. Limited views. Normal diastolic function. There are no prior echocardiogram studies to compare. Dr. Dimas Shepherd MD (Electronically Signed) Final Date: 02 January 2024 17:35 S
[2024-01-02 14:28] LABS: Chlamydia Trachomatis RNA TMA NOT DETECTED (NOT DETECTED); Neisseria Gonorrhoeae RNA, TMA NOT DETECTED (NOT DETECTED)
[2024-01-02] MEDS: oxyCODONE 5 mg IR Tab/Cap PO ×2 (15:35→21:23)
[2024-01-02] MEDS: doxycycline 100 MG in sodium chloride 0.9% (plus) 100 ML IV (15:37)
[2024-01-02 17:41] LABS: Vancomycin Trough 14.7 ug/mL (10-15)
[2024-01-02] MEDS: levETIRAcetam 1,000 mg/10 mL UDC 750 MG PO (17:49)
--- NOTE | 2024-01-02 20:31 | PM.TDS ---
Transfer Summary Providers Date of Admission: 12/31/23 10:28 Date of Discharge/Transfer: 01/02/24 Attending Provider at Admission: Shalini Rice MD Attending Provider at Transfer: Park Ya MD Transfer Plans: Anticipated date of transfer: 01/02/24. Diagnoses at Discharge Discharge Diagnosis (1) Metabolic acidosis: Status: Acute (2) Meningitis: Status: Acute (3) Encephalitis: Status: Acute (4) Metabolic encephalopathy: Status: Acute (5) New onset seizure: Status: Acute (6) Persistent fever: Status: Acute Reason for Visit Reason for Visit Seizures x 2 Hospital Course Hospital Course 38 year old young Male who lives with his friends, does not have Significant past medical history, Presented to the hospital after an episode of seizure, patient was given 8 mg of Ativan in the ER, He was able to protect his airway, remained postictal, LP was done to obtain CSF studies which showed glucose 115, wbc 47, 30% neutrophil protein 54, Patient remained in the ICU however he did not experience recurrence of seizure. He was put on ceftriaxone 2 g iv q12, Vancomycin, acyclovir 800mg q8h,patient remain febrile throughout hospitalization, decision was made to add doxycycline as well. He does not have any abnormal liver enzymes or thrombocytopenia. No skin rash or signs of tick bite. Patient is not sexually active last sexual encounter was roughly 4 months ago. Low risk for TB.HIV panel negative. CSFVDRL, HTLV, cultures, pending, however, preliminary report negative to date. Echo showed preserved ejection fraction, trans thoracic. MRI showed left temporal lobe, hyper, signaling temporal medial lobe insular ribbon area. Family is aware that we do not have infectious disease inpatient during this week and wanting patient to be transferred for consultation. Patient has been accepted by Dr. Cox at [facility]. TS Data Studies Completed and Pending Pending at discharge Category Date Time Status Blood Culture Stat Lab 12/30/23 12:06 Results Blood Culture Stat Lab 01/02/24 13:45 Results CMP [Comprehensive Metabolic Panel] AM LABS Lab 01/03/24 04:00 Ordered Complete Blood Count w/Auto AM LABS Lab 01/03/24 04:00 Ordered FTA [Treponema pallidum Ab] Stat Lab 01/01/24 09:17 Received HTLV I/II DNA PCR Routine Lab 01/01/24 09:17 Received Herpes Simplex Virus DNA Stat Lab 12/31/23 08:41 Received Miscellaneous Test Routine Lab 12/30/23 15:09 Received Miscellaneous Test Routine Lab 12/30/23 15:09 Received Tick Panel Routine Lab 01/02/24 16:58 Received VDRL on CSF Routine Lab 12/30/23 15:09 Received VDRL on CSF Stat Lab 01/01/24 10:17 Uncollected Completed Studies During Hospitalization Category Date Time Status CT head wo con* [id number] Stat Cat Scan 12/30/23 11:32 Completed Fluoro guided lumbar puncture [FL guided lumbarpunc dx* Exams 12/30/23 13:12 Completed [id number]] Stat XR abdomen 1V* [id number] Stat Exams 01/01/24 09:32 Completed XR chest 1V portable [id number] Stat Exams 12/30/23 11:32 Completed XR pelvis 1-2V* [id number] Stat Exams 01/01/24 09:31 Completed MR head wo con* [id number] Routine MRI 01/01/24 08:38 Completed CV. echo complete* [id number] Routine Ultrasound 01/02/24 13:04 Completed Laboratory Last Values WBC 7.62 10^3/uL (3.29-11.43) 01/02/24 03:55 RBC 3.98 10^6/uL (3.85-5.65) 01/02/24 03:55 Hgb 12.40 g/dL (11.27-16.99) 01/02/24 03:55 Hct 36.8 % (37-53) L 01/02/24 03:55 MCV 92.5 fl (82-101) 01/02/24 03:55 MCH 31.2 pg (27-33) 01/02/24 03:55 MCHC 33.7 g/dL (30-55) 01/02/24 03:55 RDW 12.3 % (12.1-15.1) 01/02/24 03:55 Plt Count 193 10^3/cmm (157-399) 01/02/24 03:55 MPV 9.5 fL (7.4-10.4) 01/02/24 03:55 Neut % (Auto) 53.2 % 01/02/24 03:55 Lymph % (Auto) 29.9 % 01/02/24 03:55 Franklin % (Auto) 14.4 % 01/02/24 03:55 Eos % (Auto) 1.7 % 01/02/24 03:55 Baso % (Auto) 0.5 % 01/02/24 03:55 Neut # (Auto) 4.05 10^3/uL (1.8-7.7) 01/02/24 03:55 Lymph # (Auto) 2.3 10^3/uL (0.8-4.8) 01/02/24 03:55 Franklin # (Auto) 1.1 10^3/uL (0.2-0.9) H 01/02/24 03:55 Eos # (Auto) 0.1 10^3/uL (0.0-0.8) 01/02/24 03:55 Baso # (Auto) 0.0 10^3/uL (0.0-0.1) 01/02/24 03:55 Nucleated RBC % (auto) 0 % 01/02/24 03:55 Nucleated RBCs # 0.0 /100WBC 01/02/24 03:55 Specimen Type Arterial 12/30/23 11:45 Sample Site Brachial, right 12/30/23 11:45 ABG pH 7.01 (7.35-7.45) L* 12/30/23 11:45 ABG pCO2 42.5 mmHg (35-45) 12/30/23 11:45 ABG pO2 77.1 mmHg (80.0-100.0) L 12/30/23 11:45 ABG PO2/FiO2 Ratio 367 12/30/23 11:45 ABG HCO3 10.7 mmol/L (22-26) L 12/30/23 11:45 ABG O2 Saturation 89.4 12/30/23 11:45 ABG Base Excess -20.2 mmol/L (-2.0-2.0) L 12/30/23 11:45 Cody Test N/a 12/30/23 11:45 A-a O2 Gradient 2.6 mmHg (5-10) L 12/30/23 11:45 Hematocrit 52.5 % (42-52) H 12/30/23 11:45 Hgb O2 Saturation 87.4 % (95-100) L 12/30/23 11:45 Carboxyhemoglobin 0.9 %THgb (0.4-20.1) 12/30/23 11:45 Methemoglobin 1.3 % (0.4-1.5) 12/30/23 11:45 Total Hemoglobin 17.1 g/dL (14-18) 12/30/23 11:45 Sodium 138.0 mmol/L (131-143) 12/30/23 11:45 Potassium 4.3 mmol/L (3.5-5.0) 12/30/23 11:45 Glucose 281.0 mg/dL (70-115) H 12/30/23 11:45 Ionized Calcium 1.2 mmol/L (1.1-1.4) 12/30/23 11:45 O2 Delivery Device Room air 12/30/23 11:45 FiO2 21.0 % 12/30/23 11:45 Vp [employer] [place] ID Amh 12/30/23 11:45 Sodium 141 mmol/L (136-145) 01/02/24 03:55 Potassium 3.7 mmol/L (3.5-5.1) 01/02/24 03:55 Chloride 108 mmol/L (98-107) H 01/02/24 03:55 Carbon Dioxide 24 mmol/L (22-29) 01/02/24 03:55 Anion Gap 12.7 (5-19) 01/02/24 03:55 BUN 20 mg/dL (6-20) 01/02/24 03:55 Creatinine 0.9 mg/dL (0.7-1.2) 01/02/24 03:55 GFR Calculation 94.4 mL/min (90-130) 01/02/24 03:55 Glucose 98 mg/dL (65-115) 01/02/24 03:55 POC Glucose 88 mg/dL (70-110) 01/02/24 08:28 Estimat Average Glucose 105 12/31/23 04:23 Hemoglobin A1c 5.3 % (4.0-6.0) 12/31/23 04:23 Calculated Osmolality 295 mOsm/kg (285-295) 01/02/24 03:55 Lactic Acid 2.5 mmol/L (0.5-2.2) H 12/31/23 09:40 Lactic Acid (Sepsis) 1.3 mmol/L (0.5-2.2) 12/31/23 13:02 Calcium 8.1 mg/dL (8.5-10.5) L 01/02/24 03:55 Magnesium 2.3 mg/dL (1.7-2.3) 12/31/23 04:23 Total Bilirubin 0.4 mg/dL (0.15-1.2) 12/31/23 04:23 AST 22 U/L (0-40) 12/31/23 04:23 ALT 15 U/L (0-41) 12/31/23 04:23 Alkaline Phosphatase 67 U/L (40-130) 12/31/23 04:23 C-Reactive Protein 3.0 mg/L (0.0-4.9) 12/30/23 11:53 Total Protein 6.2 g/dL (6.6-8.7) L D 12/31/23 04:23 Albumin 3.9 g/dL (3.5-5.2) 12/31/23 04:23 Globulin 2.3 g/dL (1.3-4.6) 12/31/23 04:23 Urine Color Yellow (Yellow) 12/30/23 13:32 Urine Appearance Clear (CLEAR) 12/30/23 13:32 Urine pH 5.0 (5-7) 12/30/23 13:32 Ur Specific [place] 1.026 (1.005-1.030) 12/30/23 13:32 Urine Protein 2+ (Negative) A 12/30/23 13:32 Urine Glucose (UA) Negative (Normal) 12/30/23 13:32 Urine Ketones Negative (Negative) 12/30/23 13:32 Urine Blood 1+ (Negative) A 12/30/23 13:32 Urine Nitrate Negative (Negative) 12/30/23 13:32 Urine Bilirubin Negative (Negative) 12/30/23 13:32 Urine Urobilinogen 1.0 mg/dL (Negative) 12/30/23 13:32 Ur Leukocyte Esterase Negative (Negative) 12/30/23 13:32 Urine RBC 0-2 /hpf (0-2) 12/30/23 13:32 Urine WBC 0-5 /hpf (0-5) 12/30/23 13:32 Ur Squamous Epith Cells 0-5 /hpf (0-5) 12/30/23 13:32 Amorphous Sediment Not Reportable 12/30/23 13:32 Urine Bacteria None seen /hpf (NONE) 12/30/23 13:32 Hyaline Casts 24.82 /lpf 12/30/23 13:32 Fluid LDH Cancelled 12/30/23 15:09 CSF Appearance Clear (CLEAR) 12/30/23 15:09 CSF Color Colorless (COLORLESS) 12/30/23 15:09 CSF Specific [place] 1.005 12/30/23 15:09 CSF WBC 47 /uL (0-5) H 12/30/23 15:09 CSF RBC 0 10^3/uL (0-0) 12/30/23 15:09 CSF Mononuclear # Auto 0.033 10^3/uL (50-90) L 12/30/23 15:09 CSF Mononuclear WBCs % 70 % (50-90) 12/30/23 15:09 CSF Polynuclear WBCs # 0.014 10^3/uL (0-10) 12/30/23 15:09 CSF Polynuclear WBCs % 30 % (0-10) H 12/30/23 15:09 CSF Diff Comment Yes 12/30/23 15:09 CSF Glucose 117 mg/dL (40-70) H 12/30/23 15:09 CSF Total Protein 54 mg/dL (15-45) H 12/30/23 15:09 Vancomycin Trough 14.7 ug/mL (10-15) 01/02/24 16:58 Salicylates < 0.3 mg/dL (3-10) L 12/30/23 11:53 Urine Opiates Screen Negative ng/mL (Negative) 12/30/23 13:32 Acetaminophen 15.0 ug/mL (10-30) 12/30/23 11:53 Ur Barbiturates Screen Negative ng/mL (Negative) 12/30/23 13:32 Ur Phencyclidine Scrn Negative ng/mL (Negative) 12/30/23 13:32 Ur Amphetamines Screen Negative ng/mL (Negative) 12/30/23 13:32 U Benzodiazepines Scrn Negative ng/mL (Negative) 12/30/23 13:32 Urine Cocaine Screen Negative ng/mL (Negative) 12/30/23 13:32 U Marijuana (THC) Screen Positive ng/mL (Negative) H 12/30/23 13:32 Ethyl Alcohol < 10 mg/dL (0-10) 12/30/23 11:53 Serum Ketones Negative (Negative) 12/30/23 11:53 Complement C3 115 mg/dL (90-180) 01/01/24 09:17 Complement C4 31 mg/dL (10-40) 01/01/24 09:17 RPR Cancelled 01/01/24 09:17 Adenovirus (PCR) Not detected (NOT DETECT) 12/30/23 13:32 C. pneumoniae DNA (PCR) Not detected (NOT DETECT) 12/30/23 13:32 C.trachomatis RNA (TMA) Not detected (NOT DETECTED) 12/31/23 20:20 Chlamydia/GC Comment See note 12/31/23 20:20 Coronavirus 229E (PCR) Not detected (NOT DETECT) 12/30/23 13:32 HIV 1&2 Ab & HIV 1 Ag Non-reactive (Non-Reactiv) 12/31/23 13:02 HIV 1&2 Antibody Non-reactive (Non-Reactiv) 12/31/23 13:02 Human Metapneumovir PCR Not detected (NOT DETECT) 12/30/23 13:32 Influenza A (H1) PCR Not detected (NOT DETECT) 12/30/23 13:32 Influ A (H1/09) PCR Not detected (NOT DETECT) 12/30/23 13:32 Influenza A (H3) PCR Not detected (NOT DETECT) 12/30/23 13:32 Influenza Type A (PCR) Not detected (NOT DETECT) 12/30/23 13:32 Influenza Type B (PCR) Not detected (NOT DETECT) 12/30/23 13:32 M. pneumoniae (PCR) Not detected (NOT DETECT) 12/30/23 13:32 N.gonorrhoeae RNA (TMA) Not detected (NOT DETECTED) 12/31/23 20:20 Parainfluenza 1 (PCR) Not detected (NOT DETECT) 12/30/23 13:32 Parainfluenza 2 (PCR) Not detected (NOT DETECT) 12/30/23 13:32 Parainfluenza 3 (PCR) Not detected (NOT DETECT) 12/30/23 13:32 Parainfluenza 4 (PCR) Not detected (NOT DETECT) 12/30/23 13:32 RSV Type A (PCR) Not detected (NOT DETECT) 12/30/23 13:32 RSV Type B (PCR) Not detected (NOT DETECT) 12/30/23 13:32 Entero/Rhino (PCR) Not detected (NOT DETECT) 12/30/23 13:32 SARS-CoV-2 (PCR) Not detected (NOT DETECT) 12/30/23 13:32 Radiology Impressions Chest X-Ray 12/30/23 11:32 IMPRESSION: No acute findings. Head CT 12/30/23 11:32 IMPRESSION: 1. No evidence of intracranial hemorrhage or mass effect. 2. No acute intracranial findings. Lumbar Puncture Fluoroscopy 12/30/23 13:12 IMPRESSION: Uncomplicated lumbar puncture for CSF. Head MRI 01/01/24 08:38 IMPRESSION: 1. Extremely limited evaluation of the brain due to patient's movement. 2. Large area of abnormal diffusion signal in the LEFT medial temporal lobe to involve the insular ribbon. Differential is most likely acute herpes encephalitis, acute infarct or status epilepticus. Pelvis X-Ray 01/01/24 09:31 Impression: Small clips in scrotum from a vasectomy. Abdomen X-Ray 01/01/24 09:32 Impression: Moderate generalized ileus. Recent Clincial Data Last Vital Signs Temp 101.2 F H 01/02/24 14:30 Pulse 87 01/02/24 18:00 Resp 16 01/02/24 18:00 BP 127/66 01/02/24 18:00 Pulse Ox 100 01/02/24 18:00 O2 Del Method Room Air 01/02/24 05:30 O2 Flow Rate 1 12/30/23 15:58 Vital Signs Temp Pulse Resp BP Pulse Ox 01/02/24 18:00 87 16 127/66 100 01/02/24 17:54 70 9 L 01/02/24 17:00 133/76 01/02/24 16:30 81 18 137/70 01/02/24 16:00 73 19 H 132/73 01/02/24 15:35 14 01/02/24 15:30 79 17 132/73 01/02/24 15:00 83 25 H 131/71 01/02/24 14:30 101.2 F H 85 15 113/67 98 01/02/24 14:00 113/67 01/02/24 13:30 113/67 01/02/24 13:00 91 136/73 01/02/24 12:30 102.8 F H 98 136/73 01/02/24 12:00 100 130/76 01/02/24 11:30 90 130/76 01/02/24 11:00 94 114/70 01/02/24 10:30 88 114/70 01/02/24 10:00 98.6 F 82 16 132/75 01/02/24 09:30 75 25 H 132/75 01/02/24 09:00 82 15 107/61 01/02/24 08:35 87 21 H 107/61 Intake & Output/Weight 12/31/23 01/01/24 01/02/24 01/03/24 06:59 06:59 06:59 06:59 Intake Total 3300 / 3300 2800 / 2800 4387.5 / 4387.5 2062.5 / 2061.5 Output Total 800 / 800 3150 / 3150 800 / 800 Balance 2500 / 2500 -350 / -350 3587.5 / 3587.5 2061.5 / 2061.5 Weight 82.327 kg 86.863 kg 73.482 kg Vitals Last Vital Signs Temp 101.2 F H 01/02/24 14:30 Pulse 87 01/02/24 18:00 Resp 16 01/02/24 18:00 BP 127/66 01/02/24 18:00 Pulse Ox 100 01/02/24 18:00 O2 Del Method Room Air 01/02/24 05:30 O2 Flow Rate 1 12/30/23 15:58 TS Medications Medications Acetaminophen (Acetaminophen 325 Mg Tablet) 650 mg PO Q6H PRN PRN Reason: MILD PAIN Last Admin: 01/02/24 14:28 Dose: 650 mg Acetaminophen (Acetaminophen 650 Mg Supp) 650 mg [place] Q6H PRN PRN Reason: Fever >/=101 if cant do po Last Admin: 12/31/23 08:19 Dose: 650 mg Ceftriaxone Sodium (Ceftriaxone 2,000 Mg Sdv) 2,000 mg IVP Q12H [facility]; Protocol Enoxaparin Sodium (Enoxaparin 40 Mg/0.4 Ml Syringe) 40 mg SUBCUT Q24H [facility] Last Admin: 01/01/24 12:39 Dose: 40 mg Sodium Chloride (Sodium Chloride 0.9%) 1,000 mls @ 75 mls/hr IV .[id number] [facility] Last Admin: 01/02/24 14:44 Dose: Not Given Vancomycin/PEG/NADA/Lysine/Water (Vancocin) 1,500 mg in 300 mls @ 200 mls/hr IV Q8H [facility] Last Admin: 01/02/24 17:50 Dose: 200 mls/hr Acyclovir 800 mg/ Sodium (Chloride) 116 mls @ 110 mls/hr IV Q8H [facility] Doxycycline Hyclate 100 mg/ (Sodium Chloride) 100 mls @ 100 mls/hr IV Q12H [facility]; Protocol Last Infusion: 01/02/24 16:37 Dose: Infused Ketorolac Tromethamine (Ketorolac 30 Mg/Ml Inj) 15 mg IVP Q6H PRN PRN Reason: fever Stop: 01/05/24 11:29 Last Admin: 01/02/24 12:52 Dose: 15 mg Levetiracetam (Levetiracetam 1,000 Mg/10 Ml Udc) 750 mg PO BID [facility] Last Admin: 01/02/24 17:49 Dose: 750 mg Lorazepam (Lorazepam 2 Mg/Ml Inj 1 Ml) 2 mg IVP Q6H PRN PRN Reason: Seizure > 2 minutes Ondansetron HCl (Ondansetron 2 Mg/Ml Sdv 2 Ml) 4 mg IVP Q12H PRN PRN Reason: NAUSEA AND VOMITING Oxycodone HCl (Oxycodone 5 Mg Ir Tab/Cap) 5 mg PO Q4H PRN PRN Reason: MODERATE PAIN Last Admin: 01/02/24 15:35 Dose: 5 mg Senna/Docusate Sodium (Sennosides-Docusate Tablet) 1 tab PO DAILY [facility] Last Admin: 01/02/24 08:22 Dose: 1 tab Discontinued Medications Ceftriaxone Sodium (Ceftriaxone 2,000 Mg Sdv) 2,000 mg IVP Q24H [facility]; Protocol Last Admin: 01/02/24 08:22 Dose: 2,000 mg Doxycycline Monohydrate (Doxycycline 100 Mg Tablet) 100 mg PO BID [facility]; Protocol Last Admin: 01/02/24 08:22 Dose: 100 mg Levetiracetam (Keppra) 2,000 mg in 200 mls @ 400 mls/hr IV ONCE ONE Stop: 12/30/23 12:28 Last Infusion: 12/30/23 13:53 Dose: Infused Sodium Chloride (Sodium Chloride 0.9%) 1,000 mls @ 999 mls/hr IV .Q1H1M ONE Stop: 12/30/23 13:20 Last Infusion: 12/30/23 13:53 Dose: Infused Lactated Ringer's (Lactated Ringers) 1,000 mls @ 150 mls/hr IV .Q6H40M [facility] Last Admin: 12/31/23 07:04 Dose: 150 mls/hr Levetiracetam (Keppra) 1,000 mg in 100 mls @ 400 mls/hr IV Q12H [facility] Last Infusion: 01/02/24 11:38 Dose: Infused Acyclovir 500 mg/ Sodium (Chloride) 110 mls @ 110 mls/hr IV Q8H [facility] Last Admin: 01/01/24 12:25 Dose: Not Given Vancomycin/PEG/NADA/Lysine/Water (Vancocin) 1,250 mg in 250 mls @ 200 mls/hr IV Q8H [facility] Last Infusion: 01/01/24 11:02 Dose: Infused Acyclovir 500 mg/ Sodium (Chloride) 110 mls @ 110 mls/hr IV Q8H [facility] Last Infusion: 01/02/24 12:23 Dose: Infused Penicillin G Potassium 4,000, (000 unit/ Sodium Chloride) 100 mls @ 100 mls/hr IV Q4H [facility] Last Admin: 01/02/24 13:35 Dose: Not Given Ketorolac Tromethamine (Ketorolac 30 Mg/Ml Inj) 15 mg IVP ONCE ONE Stop: 12/31/23 03:29 Last Admin: 12/31/23 04:02 Dose: 15 mg Lorazepam (Lorazepam 2 Mg/Ml Inj 1 Ml) 2 mg IVP ONCE ONE Stop: 12/30/23 14:16 Last Admin: 12/30/23 14:23 Dose: 2 mg Lorazepam (Lorazepam 2 Mg/Ml Inj 1 Ml) Confirm Administered Dose 2 mg .ROUTE .STK-MED ONE Stop: 12/30/23 15:00 Last Admin: 12/30/23 15:27 Dose: 2 mg Pantoprazole Sodium (Pantoprazole 40 Mg Sdv) 40 mg IVP DAILY [facility] Last Admin: 01/02/24 08:22 Dose: 40 mg Allergies No Known Allergies Allergy (Verified 12/30/23 12:35) Home Medications No Known Home Medications 12/31/23 [History Confirmed 12/31/23] Discharge Plan Discharge Condition: Stable Prescriptions: New levetiracetam [Keppra] 750 mg tablet 750 mg PO BID Qty: 60 3RF No Action No Known Home Medications Discharge Orders: Transfer Out of Facility (Order); Ordered 01/02/24 Ordered By: Park Ya Other Ambulatory Orders: EEG electroencephalogram (Routine) Timeframe: 2 Weeks Facility: [facility] - Location: Neurology Ordered By: Shalini Rice MR head wo/w con [id number] (Routine) Timeframe: 2 Weeks Facility: [facility] - Location: Radiology [facility] Ordered By: Shalini Rice Referrals: Joann Mata MD [Physician] - 2 weeks (New onset seizure, case discussed with Dr Mata, MRI and EEG ordered for outpatient, schedule this apt after those complete) Discharge Diet: Advance as tolerated Discharge Activity: Increase activity as tolerated and Limit activity as instructed Patient Instructions: Levetiracetam (By mouth) (Keppra, Keppra XR, Spritam, Elepsia XR), New-Onset Seizure in Adults (DC), Opioid Safety Activity Restrictions/Additional Instructions: DO NOT DRIVE or operate heavy machinery. You had 2 seizures on 12/30/2023. You cannot drive until you have gone at least 6 months without a seizure for your safety and that of others. If you were to have a seizure while attempting to drive or use heavy machinery you could hurt or kill yourself and/or others. FOLLOW UP PLANS: You will need to see Dr Mata at [facility] You will need an outpatient EEG and MRI before seeing neurology You will be prescribed Keppra, a medication to prevent further seizures Assessment: New Onset Seizure with focal progressing to generalized presentation Plan of Treatment: Neurology follow up planned MRI and EEG ordered as outpatient CT head and Lumbar Puncture done during hospital stay CMP, ABG, CBC, CRP, Urinalysis, blood culture and viral panel done during hospital stay Starting Keppra DO NOT DRIVE until you have been seizure free for at least 6 months Transfer Attestations Time Spent in Transfer Care: greater than 30 min Quality Metrics Clinical Quality Measures [ No reported AMI, CVA or VTE this stay] Coding Level of Care Code Acute Code for Chg Fwd Diagnoses Metabolic acidosis E87.20 Meningitis G03.9 Encephalitis G04.90 Metabolic encephalopathy G93.41 New onset seizure R56.9 Persistent fever R50.9
[2024-01-02] MEDS: ACYCLOVIR IV (20:44)
--- NOTE | 2024-01-02 21:30 | PC.NURSE ---
Transfer Dr. Ya contacted unit: patient is to be transferred to [facility], accepted by Dr. Cox. Awaiting bed number from [facility]. Friend, Cyndy Vail, updated.
[2024-01-03] VITALS (17 sets, daily range): BP systolic 105–159; BP diastolic 52–86; PULSE 68–94; RESP 15–25; TEMP 36.4–39.7; O2SAT 94–100
[2024-01-03] MEDS: vancomycin 1,500 MG/300 ML PIGGYBACK 200 MG IV (02:04)
--- NOTE | 2024-01-03 02:12 | PC.NURSE ---
Called report to Delaney Brooks RN. at [facility] at 2130. [facility] was unable to give ETA on transfer. Later, contacted [facility] who advised they could not transport until 0700 or 0730. Contacted [facility] who was also unable to transport until after 0700 in the morning. Patient's friend, Cyndy, updated of transport information.
[2024-01-03] MEDS: SODIUM CHLORIDE 0.9% IV (02:55)
[2024-01-03] MEDS: ACYCLOVIR IV (02:55)
[2024-01-03] MEDS: doxycycline 100 MG in sodium chloride 0.9% (plus) 100 ML IV (03:57)
[2024-01-03] MEDS: sodium chloride 0.9% 1,000 ML 75 ML IV (04:01)
[2024-01-03 04:04] LABS: Basophils % 0.6 %; Eosinophils % 0.3 %; Hematocrit 36.9 % (37-53); Lymphocytes % 15.8 %; Mean Corpuscular HGB Conc 34.1 g/dL (30-55); Mean Corpuscular Hemoglobin 31.1 pg (27-33); Mean Corpuscular Volume 91.1 fl (82-101); Mean Platelet Volume 9.4 fL (7.4-10.4); Monocytes # 0.6 10^3/uL (0.2-0.9); Monocytes % 9.6 %; Neutrophils % 73.4 %; Nucleated Red Blood Cells % 0 %; Platelet Count 204 10^3/cmm (157-399); Red Blood Count 4.05 10^6/uL (3.85-5.65); Red Cell Distribution Width 12.3 % (12.1-15.1); White Blood Count 6.27 10^3/uL (3.29-11.43)
[2024-01-03 04:18] LABS: Alanine Aminotransferase 26 U/L (0-41); Albumin Level 3.3 g/dL (3.5-5.2); Alkaline Phosphatase 48 U/L (40-130); Anion Gap 14.8 (5-19); Aspartate Amino Transferase 61 U/L (0-40); Blood Urea Nitrogen 12 mg/dL (6-20); Calcium 8.2 mg/dL (8.5-10.5); Carbon Dioxide 23 mmol/L (22-29); Chloride 106 mmol/L (98-107); Creatinine Clr Calc Pharmacy 134.4998; Globulin 2.4 g/dL (1.3-4.6); Glomerular Filtration Rate 108.2 mL/min (90-130); Glucose 115 mg/dL (65-115); Osmolality Calculated 291 mOsm/kg (285-295); Potassium 3.8 mmol/L (3.5-5.1); Sodium 140 mmol/L (136-145); Total Bilirubin 0.3 mg/dL (0.15-1.2); Total Protein 5.7 g/dL (6.6-8.7)
[2024-01-03] MEDS: ketorolac 30 mg/mL INJ 15 MG IVP (04:41)
--- NOTE | 2024-01-03 05:04 | PC.NURSE ---
Upon assessment at beginning of shift NS fluids were running at 75 ml/hr, and continued to run until bag empty at 0400. New bag scanned at 0401.
[2024-01-03] MEDS: cefTRIAXone 2,000 mg SDV 2000 MG IVP (07:14)
[2024-01-03] MEDS: levETIRAcetam 1,000 mg/10 mL UDC 750 MG PO (08:04)
--- NOTE | 2024-01-03 09:17 | PC.NURSE ---
[facility] ems transferred patient at 0820. Nurse gave report to Chronic Manager. Keppra given before transfer. Nurse alerted Cyndy Vail Nurse [facility] spoke to [facility]. No belongings in room.
[2024-01-05 20:24] LABS: HSV 1 DNA DETECTED; HSV 2 DNA NOT DETECTED; HSV Source CEREBROSPINAL FLUID
[2024-01-06 13:55] LABS: Lyme AB Screen <0.90 index
[2024-01-06 15:00] LABS: HTLV I DNA NOT DETECTED; HTLV II DNA NOT DETECTED
[2024-01-07 01:09] LABS: VDRL on CSF NON-REACTIVE
[2024-01-08 17:09] LABS: E. Chaffeensis AB IGG <1:64; E. Chaffeensis AB IGM <1:20
[2024-01-09 16:59] LABS: RMSF IGG NOT DETECTED; RMSF IGM NOT DETECTED
[2024-01-09 19:10] LABS: Treponema pallidum Ab NON-REACTIVE
== END 2024-01-03 08:20 | disposition short-term general hospital (02) | DRG 97 ==
LOC: ER 13:35 → ICU 13:48
PROVIDERS: Internal Medicine; Admitting Provider Hospitalist; Emergency Provider Emergency Medicine; Visit Provider Internal Medicine
DX: G03.0 Nonpyogenic meningitis (principal); G93.41 Metabolic encephalopathy; E87.20 Acidosis, unspecified; Z11.52 Encounter for screening for COVID-19; R56.9 Unspecified convulsions; F17.290 Nicotine dependence, other tobacco product, uncomplicated
CPT/HCPCS: 36415; 36416; 36592; 36600; 51701; 62328; 70450; 70551; 71045; 72170; 74018; 80048; 80051; 80053; 80202; 80306; 80307; 80503; 81001; 82009; 82330; 82805; 82945; 82962; 83036; 83605; 83735; 84157; 84315; 85025; 86140; 86160; 86403; 86592; 86618; 86666; 86757; 86780; 87040; 87070; 87075; 87205; 87486; 87491; 87530; 87581; 87591; 87633; 87798; 87806; 89050; 93005; 93306; 96365; 96372; 96376; 99285; G0378; J0133; J0696; J1650; J1885; J1953; J2060; J2470; J2540; J3370; J3490; J7030; J7120; Q3014

== ENCOUNTER 2024-08-19 04:51 | Emergency (ER) | payer MEDICAID, SELFPAY ==
[2024-08-19 04:54] VITALS: BP 140/83; PULSE 53; RESP 16; TEMP 35.7; O2SAT 99; BMI 25.5
--- NOTE | 2024-08-19 05:18 | W.ED.NAVMDI ---
HPI - Nausea/Vomiting/Diarrhea General: Chief complaint: Nausea/Vomiting/Diarrhea Stated complaint: Vomiting\Cant Eat\Diar Time Seen by Provider: 08/19/24 05:11 History of Present Illness: This patient is a 39-year-old white male who presents to the emergency department with nausea, vomiting and diarrhea. Symptoms started 2 days ago. No fever. No recent antibiotics. Associated nausea: Yes Associated symtoms: Reports nausea Related Data Home Medications ?Medication ?Instructions ?Recorded ?Confirmed fexofenadine 180 mg tablet 180 mg PO DAILY 03/09/24 07/26/24 (Allergy Relief (fexofenadine)) fluticasone furoate 50 See Rx Instructions inhalation 03/09/24 07/26/24 mcg/actuation blister powder for DAILY inhalation levetiracetam 750 mg tablet 750 mg PO BID 03/09/24 07/26/24 (Keppra) valacyclovir 500 mg tablet 500 mg PO DAILY 03/09/24 07/26/24 Previous Rx's ?Medication ?Instructions ?Recorded lamotrigine 100 mg tablet 100 mg PO DAILY #30 tabs 07/26/24 ondansetron 4 mg disintegrating 4 mg PO Q4H PRN nausea and 08/19/24 tablet vomiting #20 tabs Allergies Allergy/AdvReac Type Severity Reaction Status Date / Time No Known Allergies Allergy Verified 08/19/24 04:58 Review of Systems General: Reports: 10 or more systems reviewed and unremarkable except in HPI and below GI: Reports: nausea, vomiting and diarrhea PFSH ED PFSH: Medical History (Updated 08/19/24 @ 06:01 by Antoni Gabriel MD) Psychiatric care Medical history unknown Surgical History (Updated 12/30/23 @ 16:18 by Shalini Rice MD) Surgical history unknown Family History (Updated 12/30/23 @ 17:16 by Shalini Rice MD) Father Pancreatic cancer Brother Methamphetamine addiction Social History (Updated 12/30/23 @ 16:24 by Shalini Rice MD) Smoking and tobacco/nicotine status: light tobacco/nicotine user e-cigarettes E-Cigarette Details: vaporizer device and with nicotine Alcohol intake: current Substance/Drug Use: current Other substance/drug use details: occasional THC use, from known source Additional social history: Recently got a job at [employer], also works in the [employer] at [employer] Physical Exam Const: COMMON NORMALS: no acute distress, patient oriented x3 and no limitations GENERAL APPEARANCE: cooperative and comfortable HENMT: COMMON NORMALS: normocephalic, atraumatic, Normal nasal mucous membranes and turbinates present, moist oral mucous membranes and oropharynx normal HEAD & SCALP: normal to inspection, normocephalic and atraumatic FACE & SINUS: normal facial exam NOSE: Normal nasal mucous membranes and turbinates present Eye: COMMON NORMALS: Equal, round and reactive pupils present, EOMs intact bilaterally and conjunctivae normal GENERAL EYE: appearance normal, both eyes and all related structures CONJUNCTIVA: Yes conjunctivae normal PUPIL: Yes Equal, round and reactive pupils present Neck/C-Spine: COMMON NORMALS: supple and no JVD Chest: COMMONS NORMALS: normal inspection of the chest Resp: COMMON NORMALS: normal respiratory effort and clear to auscultation bilaterally AUSCULTATION: clear to auscultation bilaterally Cardio: COMMON NORMALS: no JVD, regular rate, regular rhythm, No gallops present (Cardio), No murmurs present (Cardio) and No rub (Cardio) RATE: regular rate RHYTHM: regular rhythm GI: COMMON NORMALS: Normal to inspection, nondistended, normoactive bowel sounds present, Soft to palpation and non-tender AUSCULTATION: Yes normoactive bowel sounds PALPATION: Yes Soft to palpation : COMMON NORMALS: Yes no CVA tenderness BLADDER/KIDNEY EXAM: Yes no CVA tenderness Back/Pelvis: COMMON NORMALS: no CVA tenderness and thoracic and lumbar spine normal to inspection Extremity: COMMON NORMALS: normal to inspection Neuro: COMMON NORMALS: patient oriented x3 and CN's II-XII intact bilaterally Psych: COMMON NORMALS: mental status grossly normal, Normal thought process present and cooperative THOUGHT PROCESS: Normal thought process present Skin: COMMON NORMALS: no rashes or lesions noted, turgor normal and no jaundice GENERAL SKIN EXAM: no rashes or lesions noted and turgor normal Course Vital Signs: Vital signs: Vital Signs Temperature 96.3 F L 08/19/24 04:54 Pulse Rate 52 L 08/19/24 05:31 Respiratory Rate 16 08/19/24 05:31 Blood Pressure 150/81 08/19/24 05:31 Pulse Oximetry 100 08/19/24 05:31 Oxygen Delivery Me thod Room Air 08/19/24 05:31 MDM - Nausea/Vomiting/Diarrhea Medical Decision Making Patient was given a 1 L bolus of normal saline and 4 mg of Zofran IV. CBC revealed a white blood cell count of 13.5. CMP was within normal limits. Patient appears to have gastroenteritis. Recommended he push clear liquids until symptoms subside then advance diet slowly. I did prescribe Zofran for home use. Follow-up with primary care provider in 3 days if no improvement. He was discharged in stable condition. Lab Data 08/19/24 05:17 08/19/24 05:17 Laboratory Results WBC 13.54 10^3/uL (3.29-11.43) H 08/19/24 05:17 RBC 5.21 10^6/uL (3.85-5.65) 08/19/24 05:17 Hgb 16.40 g/dL (11.27-16.99) 08/19/24 05:17 Hct 47.0 % (37-53) 08/19/24 05:17 MCV 90.2 fl (82-101) 08/19/24 05:17 MCH 31.5 pg (27-33) 08/19/24 05:17 MCHC 34.9 g/dL (30-55) 08/19/24 05:17 RDW 11.9 % (12.1-15.1) L 08/19/24 05:17 Plt Count 331 10^3/cmm (157-399) 08/19/24 05:17 MPV 9.2 fL (7.4-10.4) 08/19/24 05:17 Neut % (Auto) 80.5 % 08/19/24 05:17 Lymph % (Auto) 12.6 % 08/19/24 05:17 [place] % (Auto) 5.3 % 08/19/24 05:17 Eos % (Auto) 1.0 % 08/19/24 05:17 Baso % (Auto) 0.2 % 08/19/24 05:17 Neut # (Auto) 10.89 10^3/uL (1.8-7.7) H 08/19/24 05:17 Lymph # (Auto) 1.7 10^3/uL (0.8-4.8) 08/19/24 05:17 [place] # (Auto) 0.7 10^3/uL (0.2-0.9) 08/19/24 05:17 Eos # (Auto) 0.1 10^3/uL (0.0-0.8) 08/19/24 05:17 Baso # (Auto) 0.0 10^3/uL (0.0-0.1) 08/19/24 05:17 Nucleated RBC % (auto) 0 % 08/19/24 05:17 Nucleated RBCs # 0.0 /100WBC 08/19/24 05:17 Potassium 3.7 mmol/L (3.5-5.1) 08/19/24 05:17 Chloride 99 mmol/L (98-107) 08/19/24 05:17 Carbon Dioxide 23 mmol/L (22-29) 08/19/24 05:17 Anion Gap 16.7 (5-19) 08/19/24 05:17 BUN 11 mg/dL (6-20) 08/19/24 05:17 Creatinine 0.8 mg/dL (0.7-1.2) 08/19/24 05:17 GFR Calculation 107.6 mL/min (90-130) 08/19/24 05:17 Calcium 9.8 mg/dL (8.5-10.5) 08/19/24 05:17 Total Bilirubin 0.5 mg/dL (0.15-1.2) 08/19/24 05:17 AST 22 U/L (0-40) 08/19/24 05:17 ALT 26 U/L (0-41) 08/19/24 05:17 Alkaline Phosphatase 84 U/L (40-130) 08/19/24 05:17 Total Protein 7.3 g/dL (6.6-8.7) 08/19/24 05:17 Albumin 4.4 g/dL (3.5-5.2) 08/19/24 05:17 Globulin 2.9 g/dL (1.3-4.6) 08/19/24 05:17 No radiology studies performed this visit Discharge Plan Discharge Patient Disposition: Home Clinical Impression: Gastroenteritis Condition: Stable Prescriptions: New ondansetron 4 mg tablet,disintegrating 4 mg PO Q4H PRN (Reason: nausea and vomiting) Qty: 20 0RF No Action fexofenadine [Allergy Relief (fexofenadine)] 180 mg tablet 180 mg PO DAILY fluticasone furoate 50 mcg/actuation blister with device See Rx Instructions inhalation DAILY Rx Instructions: 2 inh per nostril (4 sprays) inhaled daily; levetiracetam [Keppra] 750 mg tablet 750 mg PO BID valacyclovir 500 mg tablet 500 mg PO DAILY lamotrigine 100 mg tablet 100 mg PO DAILY Qty: 30 11RF Discharge Orders: Discharge ED (Routine); Ordered 08/19/24 Ordered By: Antoni Gabriel Referrals: Cheyenne Cali MD [Primary Care Provider] - Patient Instructions: Gastroenteritis (ED) Print Language: Luxembourger Coding Level of Care Code ED Psychologist [employer] Organ[employer]ational for [facility]
[2024-08-19] MEDS: ondansetron 2 mg/ML SDV 2 mL 4 MG IVP (05:28)
[2024-08-19] MEDS: sodium chloride 0.9% 1,000 ML 999 ML IV (05:28)
[2024-08-19 05:30] LABS: Basophils % 0.2 %; Eosinophils # 0.1 10^3/uL (0.0-0.8); Lymphocytes # 1.7 10^3/uL (0.8-4.8); Lymphocytes % 12.6 %; Mean Corpuscular HGB Conc 34.9 g/dL (30-55); Mean Corpuscular Hemoglobin 31.5 pg (27-33); Mean Corpuscular Volume 90.2 fl (82-101); Mean Platelet Volume 9.2 fL (7.4-10.4); Monocytes # 0.7 10^3/uL (0.2-0.9); Monocytes % 5.3 %; Neutrophils # 10.89 10^3/uL (1.8-7.7); Neutrophils % 80.5 %; Nucleated Red Blood Cells % 0 %; Platelet Count 331 10^3/cmm (157-399); Red Blood Count 5.21 10^6/uL (3.85-5.65); Red Cell Distribution Width 11.9 % (12.1-15.1); White Blood Count 13.54 10^3/uL (3.29-11.43)
[2024-08-19 05:31] VITALS: BP 150/81; PULSE 52; RESP 16; O2SAT 100
[2024-08-19 05:59] LABS: Alanine Aminotransferase 26 U/L (0-41); Albumin Level 4.4 g/dL (3.5-5.2); Alkaline Phosphatase 84 U/L (40-130); Anion Gap 16.7 (5-19); Aspartate Amino Transferase 22 U/L (0-40); Blood Urea Nitrogen 11 mg/dL (6-20); Calcium 9.8 mg/dL (8.5-10.5); Carbon Dioxide 23 mmol/L (22-29); Chloride 99 mmol/L (98-107); Creatinine Clr Calc Pharmacy 133.4315; Globulin 2.9 g/dL (1.3-4.6); Glomerular Filtration Rate 107.6 mL/min (90-130); Glucose 126 mg/dL (65-115); Osmolality Calculated 281 mOsm/kg (285-295); Potassium 3.7 mmol/L (3.5-5.1); Sodium 135 mmol/L (136-145); Total Bilirubin 0.5 mg/dL (0.15-1.2); Total Protein 7.3 g/dL (6.6-8.7)
[2024-08-19 06:31] VITALS: BP 133/79; PULSE 56; O2SAT 98
== END 2024-08-19 06:27 | disposition home or self-care (01) ==
PROVIDERS: Emergency Provider Emergency Medicine; PCP Family Medicine
DX: K52.9 Noninfective gastroenteritis and colitis, unspecified (principal); F17.290 Nicotine dependence, other tobacco product, uncomplicated
CPT/HCPCS: 80053; 85025; 96374; 99284; J2405; J7030